=== PATIENT | female | born 1960 | race Caucasian/White ===

== ENCOUNTER 2018-09-22 00:24 | Outpatient (CLI) | payer MEDICAID, SELFPAY ==
--- NOTE | 2018-09-22 12:46 | DI.COMBO_ITS ---
SYMPTOMS/DIAGNOSIS: SCREENING, Z12.31, PT FEELS LUMPY TISSUE MAMMOGRAMS: Mammograms were interpreted according to the usual protocol including computer analysis with CAD system, tomosynthesis and C view imaging. The breast tissue is of moderate radiodensity. There is no evident mass. There are no suspicious calcifications. There is a question regarding a palpable abnormality in the superior portion of the right breast and ultrasound was carried out. At ultrasound, no cyst or mass is defined. SUMMARY: No evidence of malignancy, category 1. Yearly screening mammography is recommended. Breast density category B. MQSA ASSESSMENT OF FINDINGS: Negative. Category 1. Patient will receive a letter notifying them of these results. BI-RADS category B. There are scattered areas of fibroglandular density.
== END 2018-09-22 00:44 ==
PROVIDERS: PCP Specialist/Technologist Athletic Trainer; Visit Provider Specialist/Technologist Athletic Trainer
DX: Z12.31 Encounter for screening mammogram for malignant neoplasm of breast (principal); N63.10 Unspecified lump in the right breast, unspecified quadrant
CPT/HCPCS: 76642; 77063; 77067

== ENCOUNTER 2018-11-16 00:56 | Outpatient (CLI) | payer MEDICAID, SELFPAY ==
--- NOTE | 2018-11-16 13:00 | DI.RAD_ITS ---
SYMPTOMS/DIAGNOSIS: RIGHT KNEE PAIN, M25.561 RIGHT KNEE: Three views. There is periarticular spurring involving all three joint compartments. There does appear to be narrowing of the patellofemoral joint. The bones appear intact. The soft tissues are unremarkable. IMPRESSION: Mild to moderate osteoarthritis of the right knee.
[2018-11-16 14:40] LABS: Vitamin B12 544 pg/mL (193-986)
== END 2018-11-16 01:16 ==
PROVIDERS: PCP Nurse Practitioner Family; Referring Provider Nurse Practitioner Family; Visit Provider Nurse Practitioner Family
DX: M25.561 Pain in right knee (principal); M17.11 Unilateral primary osteoarthritis, right knee; E53.8 Deficiency of other specified B group vitamins
CPT/HCPCS: 36415; 73562; 82607

== ENCOUNTER 2018-11-30 00:27 | Outpatient (CLI) | payer MEDICAID, SELFPAY ==
--- NOTE | 2018-11-30 15:58 | DI.DEXA_ITS ---
SYMPTOM/DIAGNOSIS: VITAMIN D DEFICIENCY DEXA SCAN: Comparison is made with 2005. The bone mineral density measurements of the lumbar spine correspond to a total T score of 0.7, in the normal range. This is not significantly changed from the previous exam. The bone mineral density measurements of the left hip correspond to a total T score of -1.3 and a femoral neck T score of -1.6, consistent with osteopenia. The left forearm bone mineral density measurements correspond to a T score of the distal third of -0.2, in the normal range. The WESLEY image shows no evidence of compression fractures. IMPRESSION: Normal bone mineral density of the lumbar spine and left forearm. Osteopenia of the left hip.
== END 2018-11-30 00:47 ==
PROVIDERS: PCP Nurse Practitioner Family; Visit Provider Nurse Practitioner Family
DX: M85.88 Other specified disorders of bone density and structure, other site (principal); E55.9 Vitamin D deficiency, unspecified
CPT/HCPCS: 77080

== ENCOUNTER 2019-07-11 09:09 | Outpatient (REF) | payer MEDICAID, SELFPAY ==
[2019-07-11 23:04] LABS: Calculated LDL 104 mg/dL; Cholesterol 189 mg/dL (<200); Glucose 96 mg/dL (74-106); HDL Cholesterol 57 mg/dL (40-60); Triglyceride 140 mg/dL (<150)
== END 2019-07-11 09:29 ==
LOC: NCHCN 09:09
PROVIDERS: PCP Nurse Practitioner Family; Visit Provider Nurse Practitioner Family
DX: Z13.220 Encounter for screening for lipoid disorders (principal); Z13.1 Encounter for screening for diabetes mellitus; Z00.00 Encounter for general adult medical examination without abnormal findings
CPT/HCPCS: 80061; 82947

== ENCOUNTER 2019-07-11 10:00 | Outpatient (CLI) | payer MEDICAID, SELFPAY ==
--- NOTE | 2019-07-11 09:58 | DI.RAD_ITS ---
EXAM: XR KNEE RT 3V AP,LAT,JOÃO INDICATION: RT KNEE PAIN M25.561. COMPARISON: LEFT KNEE LIMITED 1 OR 2 VIEWS from 02/23/2013 TECHNIQUE: 2D digital imaging was performed. FINDINGS: No acute fracture or dislocation is present. Degenerative changes are seen in all 3 joint compartmen ts particularly the patellofemoral joint. The bones are normally mineralized. There is a small join t effusion. The soft tissues are otherwise unremarkable. IMPRESSION: No acute fracture or dislocation.
--- NOTE | 2019-07-11 10:02 | DI.RAD_ITS ---
EXAM: XR KNEE LT 3V AP,LAT,JOÃO INDICATION: TOTAL KNEE REPLACEMENT LT Z96.652, FALL DOWN STAIRS 2 WEEKS AGO, PERSISTENT PAIN, M25.56 1. COMPARISON: XR KNEE RT 3V AP,LAT,JOÃO from 07/11/2019 TECHNIQUE: 2D digital imaging was performed. FINDINGS: The patient has a left total knee replacement. No evidence of hardware failure is seen. No fracture or dislocation is present. The soft tissues are unremarkable. IMPRESSION: No acute fracture or dislocation.
== END 2019-07-11 10:20 ==
PROVIDERS: PCP Nurse Practitioner Family; Visit Provider Nurse Practitioner Family
DX: Z96.652 Presence of left artificial knee joint (principal); M25.562 Pain in left knee; W19.XXXD Unspecified fall, subsequent encounter; M25.561 Pain in right knee; M25.461 Effusion, right knee; M17.11 Unilateral primary osteoarthritis, right knee
CPT/HCPCS: 73562

== ENCOUNTER 2019-08-04 14:53 | Outpatient (REF) | payer MEDICAID, SELFPAY ==
[2019-08-04 20:18] LABS: Bacteria Negative HPF (Negative); C & S Indicated? C&S Done As Ordered; Casts Negative LPF (Negative); Crystals Negative HPF (Negative); Epithelial Cells Moderate HPF (Negative); Mucus Negative (Negative); Other Cells Negative (Negative); RBC Negative HPF (0-2)
== END 2019-08-04 15:13 ==
LOC: NCHCN 14:53
PROVIDERS: PCP Nurse Practitioner Family; Visit Provider Specialist/Technologist Athletic Trainer
DX: M54.5 Low back pain (principal); R82.998 Other abnormal findings in urine
CPT/HCPCS: 81015; 87086

== ENCOUNTER 2019-08-23 11:28 | Outpatient (CLI) | payer MEDICAID, SELFPAY ==
--- NOTE | 2019-08-23 11:02 | DI.RAD_ITS ---
EXAM: XR LUMBAR SPINE COMPLETE INDICATION: LOW BACK PAIN M54.9 X 1 MONTH. COMPARISON: XR DEXA BONE DENSITY W/WO WESLEY from 11/30/2018 TECHNIQUE: 2D digital imaging was performed. FINDINGS: The vertebral bodies are well maintained in height. There is moderate narrowing of the L4-5 disc spac e. Small endplate osteophytes are seen. There are facet joint degenerative changes, greatest at L4- 5 and L5-S1. No spondylolysis, spondylolisthesis or scoliosis is seen. There is mild spurring at th e SI joints. IMPRESSION: Degenerative changes, greatest at L4-5.
== END 2019-08-23 11:48 ==
PROVIDERS: PCP Nurse Practitioner Family; Visit Provider Nurse Practitioner Family
DX: M54.5 Low back pain (principal); M51.36 Other intervertebral disc degeneration, lumbar region; M47.816 Spondylosis without myelopathy or radiculopathy, lumbar region
CPT/HCPCS: 72110

== ENCOUNTER 2019-08-23 13:35 | Outpatient (REF) | payer MEDICAID, SELFPAY ==
[2019-08-23 21:29] LABS: Anion Gap 8.7 mmol/L (3-11); BUN 29 mg/dL (7-18); CO2 25.3 mmol/L (21.0-32.0); CREATININE 1.72 mg/dL (0.55-1.02); Calcium 8.2 mg/dL (8.5-10.1); Chloride 109 mmol/L (98-107); Estimated GFR 30.25 (mL/min/1.73m2); Glucose 91 mg/dL (74-106); Potassium 4.1 mmol/L (3.5-5.1); Sodium 143 mmol/L (136-145)
[2019-08-23 21:41] LABS: Abs Immature Grans 0.02 k/cumm (0.0-0.09); Absolute Basophil Count 0.02 k/cumm (0.0-0.2); Absolute Eosinophil Count 0.11 k/cumm (0.0-0.7); Absolute Lymphocyte Count 2.28 k/cumm (1.2-3.4); Absolute Monocyte Count 0.73 k/cumm (0.11-0.7); Absolute Neutrophil Count 6.27 k/cumm (1.2-6.7); Basophils % 0.2; Eosinophils % 1.2; HCT 39.4 % (36.0-46.0); HGB 12.3 g/dL (12.0-15.5); Immature Grans % 0.2 %; Lymphocytes % 24.2; Mean Corp. HGB Concentration 31.2 g/dL (32.0-36.0); Mean Corpuscular Hemoglobin 29.5 pg (27.0-33.0); Mean Corpuscular Volume 94.5 fL (80-95); Mean Platelet Volume 10.9 fL (8.0-11.0); Monocytes % 7.7; Neutrophils % 66.5; Platelet Count 263 x1000/uL (130-400); RBC 4.17 m/cumm (4.00-5.20); RBC Distribution Width 13.8 % (11.7-14.6); White Blood Cell Count 9.43 k/cumm (4.4-10.8)
== END 2019-08-23 13:55 ==
LOC: NCHCN 13:35
PROVIDERS: PCP Nurse Practitioner Family; Visit Provider Nurse Practitioner Family
DX: M54.5 Low back pain (principal)
CPT/HCPCS: 80048; 85025

== ENCOUNTER 2019-10-27 10:25 | Outpatient (CLI) | payer MEDICAID, SELFPAY ==
--- NOTE | 2019-10-27 10:15 | DI.RAD_ITS ---
EXAM: XR KNEE RT 1V CLINICAL HISTORY: R knee pain. TECHNIQUE: 2D digital imaging was performed. COMPARISON: XR KNEE RT 3V AP,LAT,JOÃO from 07/11/2019 FINDINGS: There is severe narrowing of the lateral patellofemoral joint with a kifk-[id number]-[id number] appearance. There is prominent periarticular spurring, greatest laterally. IMPRESSION: Severe patellofemoral degenerative changes. DATA REPOSITORY: RADIATION DOSE DELIVERED:
== END 2019-10-27 10:45 ==
PROVIDERS: PCP Nurse Practitioner Family; Visit Provider Physician Assistant
DX: M25.561 Pain in right knee (principal); M22.2X2 Patellofemoral disorders, left knee
CPT/HCPCS: 73560

== ENCOUNTER 2019-10-31 11:13 | Outpatient (REF) | payer MEDICAID, SELFPAY | END 2019-10-31 11:33 | LOC: NCHCN 11:13 | PROVIDERS: PCP Nurse Practitioner Family; Visit Provider Nurse Practitioner Family | DX: L02.11 Cutaneous abscess of neck (principal) | CPT/HCPCS: 87070; 87205 ==

== ENCOUNTER 2019-11-04 03:19 | Outpatient (CLI) | payer MEDICAID, SELFPAY ==
--- NOTE | 2019-11-04 | DI.US_ITS ---
EXAM: US SOFT TISSUE HEAD OR NECK CLINICAL HISTORY: NECK MASS, R22.1, CYST RT NECK. TECHNIQUE: Sonographic assessment utilizing grayscale and color Doppler imaging was performed and ta rgeted to the area of clinical concern. COMPARISON: No exams were available for comparison FINDINGS: The area of the palpable abnormality, there is a rough roughly 1.5 centimeter area of skin thickening which shows some hyperemia. No discrete mass or cyst is visible. The findings are consistent with sk in in infection or inflammation. DATA REPOSITORY:
== END 2019-11-04 03:39 ==
PROVIDERS: PCP Nurse Practitioner Family; Visit Provider Nurse Practitioner Family
DX: R22.1 Localized swelling, mass and lump, neck (principal); L08.9 Local infection of the skin and subcutaneous tissue, unspecified
CPT/HCPCS: 76536

== ENCOUNTER 2019-11-04 08:16 | Outpatient (CLI) | payer MEDICAID, SELFPAY ==
--- NOTE | 2019-11-04 11:00 | DI.MRI_ITS ---
EXAM: MR LOWER JOINT RT WO CLINICAL HISTORY: Right knee pain after falls,m23.91, internal derangement rt knee. TECHNIQUE: Multiplanar multisequence MRI was performed. The exam is limited by the patient's body h abitus. The knee coil as a unable to be used. The body coil was utilized. Exam is also somewhat li mited by patient motion. COMPARISON: XR KNEE RT 3V AP,LAT,JOÃO from 07/11/2019 XR KNEE RT 1V from 10/27/2019 FINDINGS: There is spurring from the femoral condyles and tibial plateaus. The marrow signal is normal. The re are severe degenerative changes of the patellofemoral joint, with prominent lateral spurring and l ateral patellar subluxation. The cartilage thinning involves underlying bone. There is a moderate-s ized joint effusion. Cartilage thinning is also seen of the femoral condyles and tibial plateaus. There is some edema around the anterior cruciate ligament but no evidence of a full-thickness tear. The posterior cruciate ligament, medial and lateral collateral ligaments and extensor mechanism appea r intact. Degenerative signal changes are seen in the medial meniscus. No superimposed tear is seen . There is a the anterior horn of the lateral meniscus is not well seen there is abnormal signal the area consistent with degenerative changes with superimposed tear. No displaced meniscal fragment is seen. There is no Ferguson's cyst. IMPRESSION: Limited exam due to patient body habitus and motion. Question of an ACL sprain. Severe degenerative changes of the patellofemoral joint. Severe degenerate degeneration of the anterior horn of the lateral meniscus and question of superimpo sed tear. DATA REPOSITORY:
== END 2019-11-04 08:36 ==
PROVIDERS: PCP Nurse Practitioner Family; Visit Provider Student in an Organized Health Care Education/Training Program
DX: M25.561 Pain in right knee (principal); M17.11 Unilateral primary osteoarthritis, right knee; M23.91 Unspecified internal derangement of right knee
CPT/HCPCS: 73721

== ENCOUNTER 2019-11-23 11:00 | Outpatient (REF) | payer MEDICAID, SELFPAY ==
--- NOTE | 2019-11-23 10:20 | SKI_PTH ---
PATIENT: Lacy Harris LOC: N U#:[id number] AGE/SX: 59/F ROOM: RE11/23/[address]: Nina Marie : 1960 BED: DIS: 11/23/2019 SPEC #: [id number] RECD: 11/23/19 12:32 STATUS: GRACIE REBharti #: [id number] CONNOR: 11/23/19 10:[address]: Nina Marie DEPT: Surgical Specimen RECD BY: Janel Macedo ENTERED: 11/23/19 12:32 SP TYPE: YING OTHR DR: Hali Sosa Tissues: 1 - SKIN CYST/TAG/DEBRIDEMENT Procedures: GROSS AND MICRO LEVEL 3 Comments: [id number]
== END 2019-11-23 11:20 ==
LOC: LBN 11:00
PROVIDERS: PCP Nurse Practitioner Family; Visit Provider Surgery
DX: L72.8 Other follicular cysts of the skin and subcutaneous tissue (principal)
CPT/HCPCS: 88304

== ENCOUNTER 2019-12-16 10:30 | Outpatient (CLI) | payer MEDICAID, SELFPAY ==
--- NOTE | 2019-12-16 10:15 | DI.RAD_ITS ---
EXAM: XR STANDING ALIGNMENT CLINICAL HISTORY: R knee OA TKA planning TECHNIQUE: COMPARISON: No exams were available for comparison FINDINGS: Standing alignment views of lower extremities were obtained. There is a total knee joint replacement position on the left. There are moderate degenerative changes the medial and lateral tibiofemoral j oints on the right. IMPRESSION:
== END 2019-12-16 10:50 ==
PROVIDERS: PCP Nurse Practitioner Family; Referring Provider Nurse Practitioner Family; Visit Provider Physician Assistant
DX: M23.91 Unspecified internal derangement of right knee (principal); M17.11 Unilateral primary osteoarthritis, right knee; Z96.652 Presence of left artificial knee joint
CPT/HCPCS: 77073

== ENCOUNTER 2019-12-23 04:02 | Outpatient (CLI) | payer MEDICAID, SELFPAY ==
[2019-12-23 09:35] LABS: Mean Corp. HGB Concentration 32.4 g/dL (32.0-36.0); Mean Corpuscular Hemoglobin 30.3 pg (27.0-33.0); Mean Corpuscular Volume 93.4 fL (80-95); Mean Platelet Volume 10.2 fL (8.0-11.0); Platelet Count 268 x1000/uL (130-400); RBC 3.96 m/cumm (4.00-5.20); RBC Distribution Width 13.4 % (11.7-14.6); White Blood Cell Count 5.15 k/cumm (4.4-10.8)
[2019-12-23 10:37] LABS: Anion Gap 9.5 mmol/L (3-11); BUN 24 mg/dL (7-18); CO2 24.5 mmol/L (21.0-32.0); CREATININE 1.76 mg/dL (0.55-1.02); Calcium 8.4 mg/dL (8.5-10.1); Chloride 107 mmol/L (98-107); Estimated GFR 29.46 (mL/min/1.73m2); Glucose 104 mg/dL (74-106); Potassium 4.7 mmol/L (3.5-5.1); Sodium 141 mmol/L (136-145)
--- NOTE | 2019-12-23 13:42 | INITIAL_ITS ---
- If Service Date Differs Date of service: 12/23/19 Time of Service: 13:42 Care Management Initial Assess REASON FOR HOSPITALIZATION:: Right knee replacement surgery. PAST MEDICAL HISTORY/PAST SURGICAL HISTORY:: Medical history: CKD (Chronic kidney disease) stage 3, infected sebaceous cyst of skin, neck mass, primary osteoarthritis of right knee, atopic eczema, IBS (irritable bowel syndrome), GERD (gastroesophageal reflux disease), cardiac murmur, depression, osteoarthritis ? multiple sites, vitamin D deficiency, vitamin B12 deficiency, hyperplastic colon polyp, interstitial cystitis, proteinuria, hypertension, autosomal dominant adult polycystic kidney disease, elevated glucose, pain in joint of right elbow, osteopenia, acute low back pain, urinary symptom or sign, and restless leg syndrome. Surgical history: section, history of gastr ic bypass, laproscopic hysterectomy, manipulation and arthroscopic lysis of adhesions, oophrectomy ? both, replacement of total knee joint ? left. ADVANCE DIRECTIVES:: None on file. Has patient been provided with info about the portal/API?: Yes CODE STATUS:: Full Code INSURANCE COVERAGE / FINANCIAL ISSUES:: Medicaid. PRIMARY CARE PHYSICIAN:: TREVON Morse ([facility]). POTENTIAL DISCHARGE NEEDS:: Follow up appointment with Dr. Henry and outpatient physical therapy. PATIENT/FAMILY EDUCATION NEEDS:: Discharge instructions, limitations, follow-up plan, including Ask Me Three and self-management. ANTICIPATED BARRIERS TO DISCHARGE:: No anticipated barriers at this time. TRANSPORTATION:: Via private vehicle with family. PLAN:: Anticipate Lacy will be discharged home when medically cleared by provider. She will follow up with Dr. Henry, outpatient physical therapy, and her plan of care as directed. Lacy will be transported home by her via private vehicle when ready.
[2019-12-24 01:08] LABS: COVID-19 RT-PCR UVMMC Result Negative (Negative)
== END 2019-12-23 04:22 ==
PROVIDERS: PCP Nurse Practitioner Family; Visit Provider Student in an Organized Health Care Education/Training Program
DX: M25.561 Pain in right knee (principal); M23.91 Unspecified internal derangement of right knee; Z11.59 Encounter for screening for other viral diseases; Z01.818 Encounter for other preprocedural examination
CPT/HCPCS: 36415; 80048; 85027; U0003

== ENCOUNTER 2019-12-27 08:09 | Observation (INO) | payer MEDICAID, SELFPAY ==
[2019-12-27] VITALS (10 sets, daily range): BP systolic 129–152; BP diastolic 58–103; PULSE 43–59; RESP 12–53; TEMP 35.4–36.8; O2SAT 96–100
--- NOTE | 2019-12-27 08:15 | PDOC.ERCMIN ---
- If Service Date Differs Date of service: 12/27/19 Time of Service: 08:15 Care Management Initial Assess REASON FOR HOSPITALIZATION:: Knee replacement. PAST MEDICAL HISTORY/PAST SURGICAL HISTORY:: Medical History: Internal derangement of right knee, and Kidney disease. Surgical History: section, hysterectomy - laproscopic, manipulation and arthroscopic lysis of adhesions of L knee, oophrectomy - both, and replacement of total knee joint. PREVIOUS FUNCTIONAL STATUS/SOCIAL/FAMILY SUPPORTS:: Lacy lives in [place] with her , Tay, who is disabled. The couple's three sons live nearby and help out as needed. Lacy is independent with her ADLs at baseline. CURRENT FUNCTIONAL STATUS:: Lacy reports she lives in a one level home with a ramp and she does not need any sevices at this time. Her medical chart indicates she had a left knee replacement in 2011. ADVANCE DIRECTIVES:: None on file. Has patient been provided with info about the portal/API?: No Did the patient sign up for the portal?: No CODE STATUS:: Full Code INSURANCE COVERAGE / FINANCIAL ISSUES:: Medicaid. CURRENT HOME/COMMUNITY SERVICES/EQUIPMENT:: Lacy denies having any community services. She has a FWW at home. PRIMARY CARE PHYSICIAN:: TREVON Morse ([facility]) POTENTIAL DISCHARGE NEEDS:: Follow up appointment with Dr. Henry and outpatient physical therapy. PATIENT/FAMILY EDUCATION NEEDS:: Discharge instructions, limitations, follow up plan, including Ask Me Three and self-management. ANTICIPATED BARRIERS TO DISCHARGE:: No anticipated barriers at this time. TRANSPORTATION:: Via private vehicle by family. PLAN:: Lacy will be discharged home when medically cleared by provider. She will follow up with Dr. Henry, outpatient physical therapy, and her plan of care as prescribed. She will be driven home via private vehicle by family when ready.
[2019-12-27] MEDS: Celecoxib 200 MG CAP 400 MG PO (09:10)
[2019-12-27] MEDS: Gabapentin 300 MG CAP PO (09:10)
[2019-12-27] MEDS: Acetaminophen 500 MG TAB 1000 MG PO ×2 (09:10→14:43)
[2019-12-27] MEDS: ceFAZolin 2 GM/50 ML BAG IVPB (10:40)
[2019-12-27] MEDS: Normal Saline 20 ML VIAL (11:12)
[2019-12-27] MEDS: Bupivacaine 0.25% Pres-Free 30 ML VIAL (11:13)
[2019-12-27] MEDS: Ketorolac 30 MG/ML VIAL (11:13)
[2019-12-27] MEDS: Lactated Ringers 1,000 ML 80 ML IV ×2 (12:11→14:50)
--- NOTE | 2019-12-27 14:46 | PT.INIE ---
Date of service: 12/27/19 Time of Service: 14:46 PT Notes Visit Reasons: RIGHT KNEE DJD Physical Therapy Inpatient Initial Evaluation Date: 12/27/2019 Referring Doctor: José Henry MD PT Orders: PT CONSULT: Status post Ortho surgery. Status post right TKA. Precautions: Fall. Standard. WBAT on R LE. Patient Profile/Admitting Diagnosis: Lacy is a 59-year-old female with unilateral osteoarthritis of right knee status post total knee arthroplasty on postoperative day 0 PMHX: Medical History CKD (chronic kidney disease) stage 3, GFR 30-59 ml/min (Acute) Infected sebaceous cyst of skin (Acute) Internal derangement of right knee (Acute) Kidney disease (Acute) Neck mass (Acute) Surgical History section date not given.HE History of gastric bypass (Acute) Hysterectomy, Laproscopic pt did not state date.HE Manipulation and arthroscopic lysis of adhesions (03/17/12) of L knee (from records).HE Oophrectomy, Both no date given. Replacement of total knee joint left 03/17/2012 Social History/Home Situation: Lacy lives with in a private home with a ramp to enter. House has been made handicap accessible for her food Lacy has been the main caregiver for. She is prior to surgery. Equipment Owned/DME: 4 wheeled walker, grab bars, walk-in shower, hand-held shower Subjective: Patient reports minimal discomfort on the right knee with movement and with weight bearing but was able to complete mobility assessment without undue difficulty. She denies headache, chest pain, and dizziness throughout PT session. Objective: General Observation: Rey wraps on right LE. IV in left UE. Mental Status: Alert and oriented x4 Pain: 2-3/10 Vital Signs: Blood pressure of 153/103 mmHg as measured by nurse Ilya at the start of PT session. ROM: Right Upper Extremity: Shoulder Flexion WFL. Shoulder abduction WFL. Elbow flexion WFL. Wrist flexion WFL. Opening and closing of hand WFL. Left Upper Extremity: Shoulder Flexion WFL. Shoulder abduction WFL. Elbow flexion WFL. Wrist flexion WFL. Opening and closing of hand WFL. Right Lower Extremity: Hip flexion WFL. Hip abduction WFL. Knee flexion -15 to 90 degrees. Knee extension -15 degrees. Ankle dorsiflexion WFL. Ankle plantarflexion WFL. Left Lower Extremity: Hip flexion WFL. Hip abduction WFL. Knee flexion WFL. Ankle dorsiflexion WFL. Ankle plantarflexion WFL. Strength: Right Upper Extremity: Shoulder flexors 5/5. Shoulder abductors 5/5. Elbow flexors 5/5. Elbow extensors 5/5. Credit Assistant strong. Left Upper Extremity: Shoulder flexors 5/5. Shoulder abductors 5/5. Elbow flexors 5/5. Elbow extensors 5/5. Credit Assistant strong. Right Lower Extremity: Hip flexors 5/5. Hip abductors 5/5. Knee flexors 3-/5. Knee extensors 3-/5. Ankle dorsiflexors 4/5. Ankle plantarflexors 5/5. Left Lower Extremity:Hip flexors 5/5. Hip abductors 5/5. Knee flexors 5/5. Knee extensors 5/5. Ankle dorsiflexors 5/5. Ankle plantarflexors 5/5. Sensation: Intact as to pain and pressure on bilateral lower extremities. Bed Mobility/Transfers: Supine to sit standby assist Sit to stand contact-guard assist Stand to sit standby assist Bed to chair standby assist Chair to bed standby assist Gait: Patient tolerated level surface ambulation of 100 feet using front wheeled walker with step to gait pattern with contact-guard assist and IV pole management of PT. Nurse Dennis provided wheelchair follow for safety. 3-4/10 pain in the right knee which started with rest. Denies headache, chest pain, and dizziness during ambulation activity. Balance: Static Sitting: Normal Dynamic Sitting: Normal Static Standing: Fair Dynamic Standing: Fair Special Tests: Mobility Limitations Standardized [employer] AM-PAC 6 clicks Basic Mobility Inpatient Short Form: Raw Score: 17 CMS Score: 50% deficit Informed Consent/Education: Patient instructed in purpose of PT consult and plan of care. Assessment: Lacy demonstrates functional mobility decline and requires the use of a front wheeled walker for all mobility ADL performance, unsteadiness of gait, impairment in balance, and generalized weakness in the right knee major muscle groups due to postoperative status. Lacy is a 59-year-old female with unilateral osteoarthritis of right knee status post total knee arthroplasty on postoperative day 0 Patient presents with clinical signs and symptoms consistent with current/admitting diagnoses that have resulted to mobility limitations, gait instability, generalized weakness, and impairment of motor control as demonstrated by the following impairment level findings: 1. Decreased strength to right knee major muscle groups 2. Impaired standing balance 3. Impaired activity tolerance 4. Limitation of joint range of motion in right knee Impairments are contributing to the following functional limitations: 1. Inability to safely ambulate without assistive device and physical assistance 2. Increase completion time for mobility ADL performance 3. Increased fall risk 4. Inability to negotiate steps alone safely Patient is assessed as a complexity based on the following: History: 59-year-old female [id number] moderate with impairment level findings, functional limitations, and past medical history as indicated above Examination: Demonstrable impairment in strength, balance, and mobility level with underlying impairments and functional limitations as documented above Presentation:Evolving Decision Making: complexity Goals: N/A. PT consult only. Plan of Care/Treatment Plan: N/A. PT consult only. DISCHARGE RECOMMENDATIONS: Home with and family when medically cleared by orthopedic surgeon. Patient will benefit from the use of a front wheeled walker in order to maximize safety of mobility ADL performance at home. Outpatient physical therapy services according to orthopedic surgeon's timeline recommendations. TREATMENT CODE/TIME: [id number] x 30 minutes,, [id number] x 8 minutes beginning at 14:46 PM. Thank you very much for this referral. Sue Damon PT, DPT, CLT [facility] [place], [place]
--- NOTE | 2019-12-27 14:46 | W.PM.OP ---
Date of service: 12/27/19 Time of Service: 12:46 Operative Note Operative Note DATE OF PROCEDURE: 12/27/19 PRE-OP DIAGNOSIS: Right Knee Osteoarthritis POST-OP DIAGNOSIS: same PROCEDURE: Right Total Knee Replacement SURGEON: José Henry LABORER [employer]ING: Kimmie Garcia ANESTHESIA: regional and spinal ESTIMATED BLOOD LOSS: 300 PATHOLOGY: none sent TOURNIQUET TIME: 34 COMPLICATIONS: None Patient was transported to: PACU Patient's condition: stable Implants: 1. Depuy Attune Cruciate Retaining Femoral Component, Size 6 2. Depuy Attune Rotating Platform Tibial Component, Size 5 3. Depuy Attune 6x7mm CR,RP Poly 4. Depuy Attune Patellar Component, Size 38mm Indications: I have seen Lacy in clinic for symptoms of knee arthritis, confirmed with radiographic findings. Lacy has exhausted nonoperative methods and was having significant limitations in daily function and desired better function and less pain. I discussed the technical details of a knee replacement. I explained the risks of the procedure to include, but not limited to, bleeding, infection, pain, stiffness, fracture, damage to nerves and vessels, damage to muscles and tendons, loosening, need for repeat procedure, blood clot and cardiopulmonary demise. Despite these risks, she elected to proceed. Findings: There was significant signs of arthritis throughout the knee in all 3 compartments. Procedure Description: Lacy was greeted in the preoperative holding area where the correct side was identified and marked. The consent was reviewed with the patient and signed. The history and physical was updated. All questions were answered. Preoperative mediacations were administered: Acetaminophen 1000mg, Celebrex 400mg, and Gabapentin 300mg. An adductor canal block was then administered by the anesthesia team in the PACU. Lacy was taken back to the operating room. A spinal anesthestic was then administered. The patient was placed into the supine position on the operating room table. A nonsterile tourniquet was placed high onto the leg but only used for cementing. Posts were placed for positioning during the procedure. All bony prominences were well padded. Prophylactic antibiotics in the form of Cefazolin were administered. 1g of Tranxemic Acid was given intravenously within 30 minutes of incision. The right leg was then prepped with Chloraprep and draped in a standard fashion with impervious stockinette and extremity drape. A second prep with Chloraprep was performed prior to placing Ioband. A timeout to confirm correct identity, side and site, procedure, allergies, anesthesia, and medical concerns was performed. With the knee in some flexion, a midline incision was made overlying the knee. Full thickness skin flaps were raised once the extensor mechanism was encountered. These were raised medially and laterally. Any bleeding was controlled with electrocautery. Once the extensor mechanism was fully exposed, a medial parapatellar arthrotomy was performed in a flexed position. All bleeding from the arthrotomy and the geniculate arteries was coagulated. A medial subperiosteal peel was performed with electrocautery to the midcoronal plane. The fat pad was removed while keeping the patellar tendon protected. The anterior distal femur synovium was removed for later visualization. The ACL and PCL were resected and the anterior horn of the lateral meniscus was transected. The knee was then flexed with the patella everted. Large osteophytes from the tibia were removed. Large osteophytes from the femur were removed. Using a step drill, and based on preoperative templating, the femoral canal was entered. This was done with a step drill without any difficulty. The intramedullary distal femoral cut guide was inserted, set to a 4 degree valgus cut and 10mm cut thickness. There was some hypoplasia of the lateral femoral condyle and any remnant cartilage of the medial femoral condyle was removed for appropriate thickness. The distal femoral cut guide was then held in position and pinned. With the soft tissues protected, the distal cut was performed. This was passed over a few times to ensure a planar cut. I then turned attention to the tibia. The extramedullary guide was placed onto the leg. The distal aspect was slid medial to adjust for position of center of ankle and stay in line with shaft of the tibia. Approximately 3-5 degrees of posterior slope was kept in the proximal cutting guide. The center of the guide was aligned with the PCL. The stylus was used to assess cut thickness. The medial side, most involved side, was set for a 5mm cut, corresponding to 7mm laterally. This was then held in position and pinned into place with 2 additional pins and a cross pin for stability. The medial and lateral collateral ligaments were protected and the cut was performed. With this completed, it was assessed and noted to be of appropriate dimensions. The guide was removed. A spacer block was inserted and the knee was brought into extension. The 7mm spacer block provided full extension, without hyperextension and with stability of both the medial and lateral collateral ligaments was assessed. The pins from the femur and the tibia were then removed. The distal femur was then sized. The anterior stylus was placed onto the lateral ridge of the anterior femur. This indicated a size 6 femur. The external rotation of the guide was adjusted to 3 degrees to match the epicondylar axis, perpendicular to Celso?s line. The 4-in-1 cutting guide was the placed. The posterior medial femur cut was evaluated and appeared of good thickness. The spacer block was inserted underneath the cutting guide and stability was confirmed in 90 degrees of flexion. An devyn wing was used to confirm appropriate position of the anterior cut to avoid notching. This cutting guide was ensured to be flush on the cut surface and then pinned into place with headed pins. While protecting the soft tissues, quad tendon, and collateral ligaments, the anterior and posterior cuts were performed with a saw. The central two pins were removed and the posterior and anterior chamfers were cut next. The notch-cutting guide was placed. This was pinned to lateralize the femoral component as much as possible while keeping it flush on the cut surface. This was then pinned into position. A reciprocating saw was used to make the small notch cut. A trial CR femoral component was then inserted, impacted down to the cut surfaces, and the lug holes were drilled. A provisional trial tibial component was placed and the knee was brought through range of motion. There was noted to be excellent extension and flexion. There was no significant instability. The patella was tracking without thumbs. The tibial cut surface was fully exposed. The medial and lateral menisci were removed. The tibia was then sized as a 5. The tibia had been previously marked during trialing to correspond to the center of the tibial component to help with rotation. The trial was aligned to this asha, approximately rotated to the medial 1/3rd of the tibial tubercle. The trial was pinned into place. The tibia was prepared with a reamer and a keel punch. The knee was then brought into extension and the patella was measured as 25mm. Using the patellar clamp and cut guide, this was resected to a flat surface with at least 13mm of thickness remaining. The size 38 patella fit the best. This was oriented and then clamped into position. The lugs were drilled. The trial components were removed. The final components, except for the polyethylene were opened on the back table. The periosteal and capsular tissues, especially posteriorly, around the knee were then systematically injected with a periarticular cocktail consisting of 50cc 0.25% Marcaine, 30mg Ketorolac, 20cc of Exparal and 50cc of injectable saline. The tourniquet was then inflated to 275mmHg. The knee was thoroughly irrigated with a pulse lavage and dried. On the back table, with the implants opened, the cement was mixed. 2 batches of antibiotic laden cement were prepared with vacuum assistance. After the cement was ready it was placed on to the back side of the tibial component. A small amount was placed onto the posterior flange of the femur. Cement was manual pressurized and impregnated into the cut surface of the tibia. The tibial component was then inserted into the cut surface and impacted into position. Excess cement was removed and the component was reimpacted. Again, excess cement was removed and our attention was then turned to the femur. The femoral cut surface was once again dried and cement was manually impacted into the cut surface. The femoral component was lined with the lug holes and impacted. Excess cement was removed. It was ensured to be down against the cut surface. The trial polyethylene was then inserted and the leg was brought out into full extension for the duration of the cement curing process, approximately 15min. Cement was lastly manually impacted into the cut surface of the patella and the patellar button was clamped into position and held. During this process attention was turned to the gutters of the knee and for all interfaces for any excess cement. While the cement was hardening, the knee was irrigated with Irrisept chlorhexadine solution. It was allowed to sit in the knee for 3 minutes. After the cement had finally cured, approximately 15min, the clamp was removed from the patella and the knee was taken through range of motion. A size 7mm polyethylene component provided the best range of motion and stability with less than 2mm gapping with medial and lateral stress and full extension without significant hyperextension. The patella was tracking with a no-thumbs technique. The trial poly was removed and once again the knee was checked for any loose, excess, or errant cement. The poly component was then inserted into position after cleaning and drying the tibial tray. The capsule was then reapproximated with a No. 1 Vicryl at multiple locations. The capsule was finally closed with a No. 2 Stratafix, barbed suture. The tourniquet was then released and the arthrotomy appeared watertight without significant bleeding. The second dosing of 1g TXA was started. Deep tissues were then reapproximated with 0 Vicryl and 2-0 Vicryl. The skin was closed with a running 3-0 Monocryl in a subcuticular fashion. This was reinforced with skin glue. A Mepilex silver dressing was applied along with a lamq-vm-swoiz CHEY wrap. A CryoCuff was applied. Lacy was transferred to the hospital bed without difficulty an suffering no apparent complication. Lacy has a good prognosis. Physical therapy will start today and without restrictions, weight-bearing as tolerated. Aspirin 81mg BID will be used for DVT prophylaxis.
--- NOTE | 2019-12-27 14:53 | W.PM.DS.N ---
Date of service: 12/27/19 Time of Service: 16:06 DS: Diagnosis Discharge Diagnosis (1) Primary osteoarthritis of right knee: Status: Acute Discharge Plan Disposition Patient Disposition: HOME Condition: Good Discharge Details Reason For Visit: RIGHT KNEE DJD Admit Date/Time: 12/27/19 08:09 Admit Provider: José Henry Attending Provider: José Henry Primary Care Provider: Hali Sosa Hospital Course Hospital Course: Patient was admitted to the medical/surgical floor following the procedure. The surgery was tolerated well without any notable medical, surgical, or anesthetic complications. Mobilization began postoperatively. Lacy was voiding spontaneously. Vitals were stable. Physical therapy worked with the patient and was cleared for discharge home. No acute medical issues. Pain was controlled on oral regimen. Home Meds and New Rx's Prescriptions: New aspirin 81 mg tablet,delayed release (DR/EC) 81 mg PO BID Qty: 60 RF: 0 acetaminophen 500 mg tablet 1,000 mg PO Q8H PRN (Reason: pain) Qty: 90 RF: 3 oxycodone 5 mg tablet 5 mg PO Q4H Qty: 18 RF: 0 omeprazole 20 mg capsule,delayed release(DR/EC) 20 mg PO DAILY Qty: 30 RF: 0 naproxen 500 mg tablet 500 mg PO BID PRNQty: 60 RF: 0 Continued omeprazole 20 MG capsule,delayed release(DR/EC) 20 mg PO DAILY RF: 0 cyanocobalamin (vitamin B-12) [Vitamin B-12] 1,000 MCG tablet 1,000 mcg PO DAILY RF: 0 multivitamin 1 EACH capsule 1 ea PO DAILY RF: 0 gabapentin 100 mg capsule 300 mg PO HS RF: 0 calcium citrate 250 mg calcium tablet 250 mg PO DAILY RF: 0 cholecalciferol (vitamin D3) 25 mcg (1,000 unit) capsule 25 mcg PO DAILY RF: 0 losartan 25 mg tablet 25 mg PO HS RF: 0 Discontinued acetaminophen [Tylenol Extra Strength] 500 mg tablet 1,500 mg PO HS PRNRF: 0 aspirin [Aspirin Low-Strength] 81 MG tablet,chewable 81 mg PO DAILY RF: 0 Discharge Instructions Additional Instructions: Dr. Henry?s Total Knee Discharge Instructions Activity: The most important activity is to walk. You should try to take short walks a few times a day. It is important that when resting you work on keeping the knee straight. Avoid putting a pillow behind the knee as this will encourage flexion. Work on range of motion exercises as provided by Physical Therapy and the preoperative booklet. - Start outpatient physical therapy within 2 weeks. - You should wear the CASTILLO hose on both legs for 2 weeks. Dressing: Keep the surgical dressing (Mepilex) in place for at least one week. If you went home on the surgical day, you should remove the CHEY wrap on the second day and then apply the CASTILLO hose. The dressing may get wet after 3 days but avoid soaking the dressing. If it gets wet, just lightly pat dry. Most patient prefer to cover with ClingWrap or Saran Wrap to keep the dressing dry. After the first week, the dressing may be removed and replaced with light gauze and tape or nothing. Medications: - You should take Tylenol and anti-inflammatory Naproxen as your primary pain control medications. Start reducing your usage of Naproxen as soon as possible as this can worsen your kidney disease. - You have been prescribed a stronger pain medication Oxycodone for breakthrough pain, take as needed as prescribed. - You will continue to take a stomach acid reduction agent, Omeprazole, to help reduce stomach acid and reflux. - You will be taking Aspirin 81mg twice a day for DVT prevention unless instructed otherwise. - If you have constipation you should take Colace or Miralax (both [id number]). It takes most people 3-4 days to have a bowel movement. Follow-up: 2 weeks. You should also call physical therapy to work on scheduling outpatient therapy sessions which can begin at 2 weeks. If you have any acute concerns or questions, please do not hesitate to contact the office at [phone]. You may contact Dr. Henry with any questions after hours through the hospital at [phone] or on his cell phone at [phone]. Referrals: José Henry MD [ [facility] STAFF PHYSICIAN] - 01/12/20 9:15 am Activity:: Activity as Tolerated Equipment/Supplies:: Walker Diet:: As Tolerated Discharge Orders Discharge Orders: Discharge Order (Routine); Ordered 12/27/19 Ordered By: José Henry DS: Summary Status at Discharge Functional status at discharge: uses cane/walker Overall status at discharge: patient is progressing back to baseline Mental Status: mental status grossly normal Speech and Movement: speech and movement normal Mood: congruent mood Affect: normal affect Exam Psych Mental Status: mental status grossly normal Speech and Movement: speech and movement normal Mood: congruent mood Affect: normal affect DS: Data Vitals/I&O Vitals and I&O: Vital Signs Temperature 36.4 C L 12/27/19 13:58 Temperature Source Tympanic 12/27/19 13:58 Pulse 43 L 12/27/19 13:58 Pulse Rhythm Regular 12/27/19 14:01 Respiratory Rate 14 12/27/19 13:58 Respiratory Effort Non-Labored 12/27/19 14:01 Respiratory Depth Normal 12/27/19 14:01 Respiratory Pattern Normal 12/27/19 14:01 Blood Pressure 129/83 12/27/19 13:58 Pulse Oximetry 98 12/27/19 13:58 Oxygen Delivery Method Room Air 12/27/19 13:58 Oxygen Flow Rate 0 12/27/19 13:58 Pain Level 3 12/27/19 14:43 Intake & Output 12/26/19 12/27/19 12/27/19 23:59 11:59 23:59 Intake Total 110 / 1082 972 / 1082 Output Total 300 / 300 Balance -190 / 782 972 / 782 Weight 129.5 kg Intake: IV 110 / 1082 972 / 1082 Output: Estimated Blood Loss 300 / 300 Other: Emesis Description None [facility] Medical History CKD (chronic kidney disease) stage 3, GFR 30-59 ml/min (Acute) Infected sebaceous cyst of skin (Acute) Kidney disease (Acute) Neck mass (Acute) Surgical History section date not given.HE History of gastric bypass (Acute) History of trigger finger (Acute) Hysterectomy, Laproscopic pt did not state date.HE Manipulation and arthroscopic lysis of adhesions (03/17/12) of L knee (from records).HE Oophrectomy, Both no date given.HE Replacement of total knee joint left 03/17/2012 Social History Smoking/Tobacco Use Status: Never Drug use: Never
--- NOTE | 2019-12-27 15:21 | NUR.NOTE ---
Nursing Note: Patient arrived on [facility] floor at 1332 on own bed from PACU. Patient oriented to call whittaker, TV remote, telephone, location of personal items. Meal delivered at 1400 from food services, well tolerated. Bladder scan at 1500, . Patient denies need to urinate.
[2019-12-27] MEDS: ceFAZolin 1 GM/50 ML BAG IVPB (15:32)
--- NOTE | 2019-12-27 16:42 | PDOC.CMDIS ---
- If Service Date Differs Date of service: 12/27/19 Time of Service: 16:42 LACE Index Scoring Tool - Questions: Length of Stay (in days): 1 Acuity (Admit via E.D.?): No Care Management Discharge Reason for Hospitalization: Knee replacement. Discharge Plan: Lacy was provided a FWW at the request of PT. She has a 4WW at home however for safety PT recomends the FWW. Lacy does not identify any additional needs she is hopeful she will be discharged home today. She has support at home and feels that she is ready for discharge. Patient/Family Education Needs: Discharge education, limitations and follow up plan of care including ask me three and self management.
== END 2019-12-27 18:00 | disposition home or self-care (01) ==
LOC: MS 17:30 → PDS 17:30
PROVIDERS: Admitting Provider Student in an Organized Health Care Education/Training Program; PCP Nurse Practitioner Family; Visit Provider Student in an Organized Health Care Education/Training Program
PROC: 0SRC0J9 Replacement of Right Knee Joint with Synthetic Substitute, Cemented, Open Approach (ICD-10-PCS; CPT 27447; principal; 2019-12-27 11:45)
DX: M17.11 Unilateral primary osteoarthritis, right knee (principal); M25.561 Pain in right knee; Z96.651 Presence of right artificial knee joint; N18.3 Chronic kidney disease, stage 3 (moderate); I12.9 Hypertensive chronic kidney disease with stage 1 through stage 4 chronic kidney disease, or unspecified chronic kidney disease
CPT/HCPCS: 27447; C1776; 76942; 97162; 97530; NC; 93005; 93010; G0378; J0690; J1100; J1885; J2001; J2250; J2405; J2704

== ENCOUNTER 2020-01-12 10:45 | Outpatient (CLI) | payer MEDICAID, SELFPAY ==
--- NOTE | 2020-01-12 09:15 | DI.RAD_ITS ---
EXAM: XR STANDING ALIGNMENT and XR knee RT 1 V CLINICAL HISTORY: 1ST POST OP. TECHNIQUE: 2D digital imaging was performed. COMPARISON: CR XR STANDING ALIGNMENT from 12/16/2019 FINDINGS: The patient has bilateral total knee arthroplasties. The left knee arthroplasty appears grossly unch anged on the single AP view. Two views of the right knee were obtained. The orthopedic hardware crala ears in good position. No lucencies are seen in or about the orthopedic hardware. The bones are int act. The hip joints are well maintained. The soft tissues are unremarkable. IMPRESSION: Bilateral total knee arthroplasties. DATA REPOSITORY: RADIATION DOSE DELIVERED:
--- NOTE | 2020-01-12 09:15 | DI.RAD_ITS ---
EXAM: XR STANDING ALIGNMENT and XR knee RT 1 V CLINICAL HISTORY: 1ST POST OP. TECHNIQUE: 2D digital imaging was performed. COMPARISON: CR XR STANDING ALIGNMENT from 12/16/2019 FINDINGS: The patient has bilateral total knee arthroplasties. The left knee arthroplasty appears grossly unch anged on the single AP view. Two views of the right knee were obtained. The orthopedic hardware carla ears in good position. No lucencies are seen in or about the orthopedic hardware. The bones are int act. The hip joints are well maintained. The soft tissues are unremarkable. IMPRESSION: Bilateral total knee arthroplasties. DATA REPOSITORY: RADIATION DOSE DELIVERED:
== END 2020-01-12 11:05 ==
PROVIDERS: PCP Nurse Practitioner Family; Visit Provider Student in an Organized Health Care Education/Training Program
DX: Z96.653 Presence of artificial knee joint, bilateral (principal); Z47.1 Aftercare following joint replacement surgery
CPT/HCPCS: 73560; 77073

== ENCOUNTER 2020-06-08 02:35 | Outpatient (CLI) | payer MEDICAID, SELFPAY ==
--- NOTE | 2020-06-08 | DI.MAMMO_ITS ---
EXAM: MG MAMMO SCREENING CLINICAL HISTORY: SCREENING, Z12.31, [facility], Z00.00 TECHNIQUE: Mammograms were interpreted according to the usual protocol including computer analysis w [employer] CAD system, tomosynthesis and C-view imaging. COMPARISON: FINDINGS: The breasts are of moderate density with fairly symmetrical distribution of fibroglandular tissue. N o dominant mass or clumped microcalcification is identified in either breast. The current examinatio n is compared with previous examinations including September 2018 and there has been no gross interval ch sarah in appearance in comparison with the prior studies. IMPRESSION: No specific evidence of malignancy at this time. Routine screening examinations are suggested at yea rly intervals due to the family history of breast carcinoma. BI-RADS Category 1 - Negative Breast Density - Category B - Scattered areas of fibroglandular density
== END 2020-06-08 02:55 ==
PROVIDERS: PCP Nurse Practitioner Family; Visit Provider Nurse Practitioner Family
DX: Z12.31 Encounter for screening mammogram for malignant neoplasm of breast (principal); Z80.3 Family history of malignant neoplasm of breast
CPT/HCPCS: 77063; 77067

== ENCOUNTER 2021-02-20 09:02 | Outpatient (REF) | payer MEDICAID, SELFPAY ==
[2021-02-20 20:51] LABS: Iron 94 ug/dL (50-170)
[2021-02-20 21:12] LABS: ALT 10 U/L (14-59); AST 12 U/L (15-37); Albumin 3.5 g/dL (3.4-5.0); Alkaline Phosphatase 78 U/L (46-116); Anion Gap 8.1 mmol/L (3-11); BUN 25 mg/dL (7-18); Bilirubin, Total 0.5 mg/dL (0.2-1.0); CO2 25.9 mmol/L (21.0-32.0); CREATININE 1.8 mg/dL (0.55-1.02); Calcium 8.3 mg/dL (8.5-10.1); Calculated LDL 95 mg/dL (<100); Chloride 108 mmol/L (98-107); Cholesterol 179 mg/dL (<200); Ferritin 65 ng/mL (8-252); Glucose 103 mg/dL (74-106); HDL Cholesterol 52 mg/dL (40-60); Potassium 4.8 mmol/L (3.5-5.1); Sodium 142 mmol/L (136-145); Total Protein 6.4 g/dL (6.4-8.2); Triglyceride 163 mg/dL (<150); Vitamin B12 282 pg/mL (193-986)
[2021-02-21 01:20] LABS: Vitamin D 25 Total 15.8 ng/mL (30-100)
[2021-02-26 12:24] LABS: Methylmalonic Acid 0.53 nmol/mL (<=0.40)
== END 2021-02-20 09:03 | disposition home or self-care (01) ==
LOC: NCHCN 09:02
PROVIDERS: PCP Nurse Practitioner Family; Visit Provider Nurse Practitioner Family
DX: Z13.220 Encounter for screening for lipoid disorders (principal); E55.9 Vitamin D deficiency, unspecified; E53.8 Deficiency of other specified B group vitamins; G25.81 Restless legs syndrome; N18.30 Chronic kidney disease, stage 3 unspecified; R25.2 Cramp and spasm
CPT/HCPCS: 80053; 80061; 80186; 82306; 83090; 82607; 82728; 83540; 83735

== ENCOUNTER 2021-03-12 17:20 | Outpatient (REF) | payer MEDICAID, SELFPAY ==
[2021-03-12 20:30] LABS: Uric Acid 7.8 mg/dL (2.6-6.0)
== END 2021-03-12 17:21 | disposition home or self-care (01) ==
LOC: NCHCN 17:20
PROVIDERS: PCP Nurse Practitioner Family; Visit Provider Nurse Practitioner Family
DX: M10.9 Gout, unspecified (principal)
CPT/HCPCS: 84550

== ENCOUNTER 2021-03-22 08:33 | Emergency (ER) | payer MEDICAID, SELFPAY ==
[2021-03-22 08:38] VITALS: BP 120/67; PULSE 60; RESP 18; TEMP 36.6; O2SAT 99
--- NOTE | 2021-03-22 08:45 | DI.RAD_ITS ---
Exam(s) XR HAND LT COMPLETE XR WRIST LT COMPLETE EXAM: XR WRIST LT COMPLETE CLINICAL HISTORY: FOBANDAR. TECHNIQUE: 2D digital imaging was performed. COMPARISON: CR LEFT WRIST COMPLETE + NAVICULA from 09/08/2014 CR LEFT WRIST COMPLETE + NAVICULA from 09/08/2014 CR LEFT WRIST LIMITED from 09/14/2014 CR LEFT WRIST LIMITED from 09/14/2014 CR LEFT WRIST LIMITED from 09/21/2014 CR LEFT WRIST LIMITED from 10/19/2014 CR LEFT WRIST LIMITED from 10/19/2014 CR XR HAND LT COMPLETE from 03/22/2021 CR XR HAND LT COMPLETE from 03/22/2021 FINDINGS: BONES: No acute fracture is present. Old the healed distal radial fracture. No bony destructive les ion is seen. JOINTS: The carpal bones are normally aligned. Mild degenerative changes. SOFT TISSUE: Dorsal soft tissue swelling over the carpal region. IMPRESSION: Unremar old distal radial fracture. No acute fracture. DATA REPOSITORY: RADIATION DOSE DELIVERED:
--- NOTE | 2021-03-22 08:45 | DI.RAD_ITS ---
Exam(s) XR KNEE RT 4V AP,LAT,JOÃO,PAT EXAM: XR KNEE RT 4V AP,LAT,JOÃO,PAT CLINICAL HISTORY: fall, landed on patella. TECHNIQUE: 2D digital imaging was performed. COMPARISON: CR XR KNEE RT 1V from 01/12/2020 FINDINGS: BONES: Total knee prosthesis, unchanged in appearance. No acute fracture is present. No bony destruc tive lesion is seen. JOINTS: The knee is normally aligned. No joint effusion is seen. SOFT TISSUE: Normal. IMPRESSION: Total knee prosthesis. No acute fracture. DATA REPOSITORY: RADIATION DOSE DELIVERED:
--- NOTE | 2021-03-22 08:52 | ED.GENADUL_ITS ---
Discharge Plan Disposition Patient Disposition: HOME Condition: Good Discharge Details Clinical Impression: Multiple contusions, Sprain of left wrist Primary Care Provider: Hali Sosa ED Provider: Gayathri Mancilla Home Meds and New Rx's Prescriptions: Continued aspirin 81 mg tablet,delayed release (DR/EC) 81 mg PO DAILY RF: 0 omeprazole 20 MG capsule,delayed release(DR/EC) 20 mg PO DAILY RF: 0 cyanocobalamin (vitamin B-12) [Vitamin B-12] 1,000 MCG tablet 1,000 mcg PO DAILY RF: 0 multivitamin 1 EACH capsule 1 ea PO DAILY RF: 0 calcium citrate 250 mg calcium tablet 250 mg PO DAILY RF: 0 cholecalciferol (vitamin D3) 25 mcg (1,000 unit) capsule 25 mcg PO DAILY RF: 0 losartan 25 mg tablet 25 mg PO HS RF: 0 gabapentin 100 mg capsule 300 mg PO DAILY RF: 0 clindamycin HCl 300 mg capsule 600 mg PO ONCE Qty: 2 RF: 0 acetaminophen 500 mg tablet 1,000 mg PO Q8H PRN (Reason: pain) Qty: 90 RF: 3 allopurinol 100 mg tablet 50 mg PO DAILY RF: 0 methylprednisolone 4 mg tablets,dose pack 4 mg PO DAILY RF: 0 Discharge Instructions Instructions: Contusion in Adults (ED), Wrist Sprain (ED) Additional Instructions: Imaging is reassuring here today. No acute fracture or dislocation. Please encourage rest, ice, elevation. Tylenol and/or ibuprofen as needed for discomfort. If you develop any new or worsening symptoms please seek care urgently once again. Otherwise, please follow-up with your primary care 2 weeks for reevaluation. Continue with Rey wrap and brace to help with discomfort. Referrals: Hali Sosa [Primary Care Provider] - Medical Decision Making Patient is a pleasant 61-year-old [id number] female presenting with chief complaint of left wrist and right knee pain. She reports a prior to arrival she was coming down a few steps into her garage. She states the steps are very short and she stumbled falling forward. States that she did hit her head on snowblower but denies LOC. No headache currently. Patient not anticoa gulated. Patient also fell on her left wrist and right knee. These are primary points of pain. Indicating the distal radius and dorsal aspect of the hand there is discomfort in the left wrist. She denies numbness or tingling. Patient is status post TKA on the right side x1 year. Has been ambulatory since the incident. On exam, patient appears nontoxic. No evidence of skull fracture or significant head injury. Her history in regard to the head injury sounds more consistent with contusion. She does not have any exam findings or history to suggest intracranial bleeding or severe head injury. She has a small abrasion to the dorsal aspect of the left hand. No significant swelling. 2+ pulses. Sensation is intact. No snuffbox tenderness or pain with axial thumb loading. Full range of motion of elbow. In regards to the right knee, patient does have a small abrasion over the patella. Full range of motion. No significant joint effusion is palpable. Exam of the left right knee is slightly limited secondary to body habitus. She had described some numbness over the patella but sensation is intact on exam. Motrin Tylenol to help with discomfort. Patient is elevating her extremities. Will obtain x-rays of the left wrist and hand as well as the right knee. FINDINGS: BONES: No acute fracture is present. Old the healed distal radial fracture. No bony destructive lesion is seen. JOINTS: The carpal bones are normally aligned. Mild degenerative changes. SOFT TISSUE: Dorsal soft tissue swelling over the carpal region. IMPRESSION: Unremar old distal radial fracture. No acute fracture. FINDINGS: BONES: Total knee prosthesis, unchanged in appearance. No acute fracture is present. No bony destructive lesion is seen. JOINTS: The knee is normally aligned. No joint effusion is seen. SOFT TISSUE: Normal. IMPRESSION: Total knee prosthesis. No acute fracture. FINDINGS: BONES: No acute fracture is present. Old the healed distal radial fracture. No bony destructive lesion is seen. JOINTS: The carpal bones are normally aligned. Mild degenerative changes. SOFT TISSUE: Dorsal soft tissue swelling over the carpal region. IMPRESSION: Unremar old distal radial fracture. No acute fracture. Discussed the findings with the patient. Encourage rest, ice, elevation. Tylenol and/or ibuprofen as needed for discomfort of the left wrist and right knee. Return precautions were discussed. Will apply Rey wrap to the right knee to help with any swelling. Also apply a universal wrist splint to the left wrist to help with discomfort. Return precautions were discussed. All of her questions and concerns were addressed and she is in agreement this plan. HPI General Mode of arrival: ambulatory . Date/Time Provider Initiated Documentation: 03/22/21 08:33 . Limitations to Documentation: no limitations . Information obtained by: patient and RN notes reviewed . History of Present Illness 61 year old F presents to the emergency department with the chief complaint of left wrist and right knee pain, described as moderate, with intensity rated at 7. Quality is described as aching, and is localized to the left, right, upper extremity and lower extremity. Patient reports no radiation. Patient started experiencing this minute(s) and it has been constant. Immobilization improves symptom(s), Movement worsens symptoms . Patient notes no other symptoms.. Patient did receive the following treatments prior to arrival, none Related Data Home Medications Medication Instructions Recorded Confirmed cyanocobalamin (vitamin B-12) 1,000 mcg PO DAILY 09/14/14 03/22/21 [Vitamin B-12] multivitamin 1 ea PO DAILY 09/14/14 03/22/21 omeprazole 20 mg PO DAILY tab-cap 09/14/14 03/22/20 calcium citrate 250 mg PO DAILY 11/14/19 03/22/21 cholecalciferol (vitamin D3) 25 25 mcg PO DAILY 11/14/19 03/22/21 mcg (1,000 unit) capsule losartan 25 mg tablet 25 mg PO HS 11/14/19 03/22/21 acetaminophen 1,000 mg PO Q8H PRN #90 tab 12/27/19 03/22/21 aspirin 81 mg tablet,delayed 81 mg PO DAILY tab 03/22/20 03/22/21 release gabapentin 100 mg capsule 300 mg PO DAILY cap 03/22/20 03/22/20 clindamycin HCl 300 mg capsule 600 mg PO ONCE #2 cap 10/04/20 03/22/21 allopurinol 50 mg PO DAILY 03/22/21 03/22/21 methylprednisolone 4 mg PO DAILY 03/22/21 03/22/21 Previous Rx's Medication Instructions Recorded acetaminophen 1,000 mg PO Q8H PRN #90 tab 12/27/19 clindamycin HCl 300 mg capsule 600 mg PO ONCE #2 cap 10/04/20 Allergies Allergy/AdvReac Type Severity Reaction Status Date / Time Iodinated Contrast Media Allergy Severe Anaphylaxsi Verified 03/22/21 08:44 s shellfish derived Allergy Severe Verified 03/22/21 08:44 ibuprofen Allergy Intermediate Stage 3 Verified 03/22/21 08:44 kidney disease Penicillins Allergy Intermediate At Verified 03/22/21 08:44 unsure as reaction lactose Allergy Mild Verified 03/22/21 08:44 morphine Allergy Mild Verified 03/22/21 08:44 pineapple Allergy Mild Verified 03/22/21 08:44 tramadol Allergy Mild Verified 03/22/21 08:44 Sulfa (Sulfonamide Allergy Skin Rash Verified 03/22/21 08:44 Antibiotics) codeine AdvReac felt like Verified 03/22/21 08:44 having heart attack General Stated Complaint: Orthopedic ASA: 4 Review of Systems Constitutional Constitutional: Reports as per HPI, Denies chills, Denies fever(s), Denies headache(s) and Denies weakness ENT Ears, Nose, Mouth, and Throat: Denies headache(s) Cardiovascular Cardiovascular: Reports as per HPI Respiratory Respiratory: Reports as per HPI and Denies cough Musculoskeletal Musculoskeletal: Reports as per HPI and Denies tingling Integumentary/Breasts Skin/Breast: Reports as per HPI, Denies rash and Denies wounds Neurologic Neurologic: Reports as per HPI, Denies headache(s), Denies tingling, Denies paresthesias and Denies weakness [facility] Medical History (Updated 03/22/21 @ 10:14 by JUSTINE Salinas) CKD (chronic kidney disease) stage 3, GFR 30-59 ml/min Infected sebaceous cyst of skin Kidney disease Neck mass Surgical History section date not given.HE History of gastric bypass History of trigger finger Hysterectomy, Laproscopic pt did not state date.HE Manipulation and arthroscopic lysis of adhesions (03/17/12) of L knee (from records).HE Oophrectomy, Both no date given.HE Replacement of total knee joint left 03/17/2012 Status post total right knee replacement (12/27/19) Social History Smoking/Tobacco Use Status: Never Smoking risk assessment performed?: Yes Alcohol Intake: never Drug use: Never Substance use type: does not use Current gender identity: female Exam Const General: cooperative, healthy appearing, comfortable, no acute distress, well developed and well groomed Nutritional Appearance: well nourished and overweight Orientation: alert and awake HENPR Head: normal to inspection, no palpable skull fracture, normocephalic and atraumatic Ears: hearing grossly normal bilaterally Face and sinus: normal facial exam Eyes General: appearance normal, both eyes and all related structures Chest Chest: normal inspection of the chest and normal palpation of entire chest wall Resp Effort & Inspection: normal respiratory effort, able to speak in complete sentences and no respiratory distress Cardio Rate: regular rate Rhythm: regular rhythm Skin Trauma: abrasion (left hand and right knee) Neuro General: patient alert and patient awake Cognition: normal cognition Speech: speech normal Gait: normal gait Motor: muscle tone normal throughout Sensory Exam: no sensory deficits noted Extrem Hand/finger images: 1. Superficial abrasion. Good range of motion. 2+ distal pulses. Sensation is intact. No pain over the anatomical snuffbox. No pain with axial thumb micaela ding. Pain over the distal radius and dorsal aspect of the hand. Knee images: 1. Small area of ecchymosis and abrasion. 2+ distal pulses. Full range of mo tion. No effusion. No palpable deformity. Patient does have some discoloration along the medial calf but this is the same as on the contralateral side. Full range of motion of the ankle and toes. No calf discomfort. Pain is over the patella. Psych Appearance: grossly normal and well kempt Mental Status: mental status grossly normal Speech and Movement: speech and movement normal Course Vital Signs Vital signs: Vital Signs Temperature 36.6 C 03/22/21 08:38 Pulse 60 03/22/21 08:38 Respiratory Rate 18 03/22/21 08:38 Blood Pressure 120/67 03/22/21 08:38 Pulse Oximetry 99 03/22/21 08:38 Temperature 36.6 C 03/22/21 08:38 Temperature Source Skin 03/22/21 08:38 Pulse 60 03/22/21 08:38 Respiratory Rate 18 03/22/21 08:38 Respiratory Effort 03/22/21 08:44 Blood Pressure 120/67 03/22/21 08:38 Blood Pressure Position Sitting 03/22/21 08:38 Pulse Oximetry 99 03/22/21 08:38 Oxygen Delivery Method Room Air 03/22/21 08:38 Oxygen Flow Rate 0 03/22/21 08:38 Pain Level 7 03/22/21 08:49
[2021-03-22] MEDS: Acetaminophen 325 MG TAB 650 MG PO (09:09)
[2021-03-22 10:24] VITALS: BP 139/83; PULSE 47; TEMP 36.8; O2SAT 100
== END 2021-03-22 10:31 | disposition home or self-care (01) ==
PROVIDERS: Emergency Provider Physician Assistant; PCP Nurse Practitioner Family
DX: S63.592A Other specified sprain of left wrist, initial encounter (principal); S80.211A Abrasion, right knee, initial encounter; S00.12XA Contusion of left eyelid and periocular area, initial encounter; W10.8XXA Fall (on) (from) other stairs and steps, initial encounter
CPT/HCPCS: 29125; 99284; 73110; 73130; 73564

== ENCOUNTER 2021-04-17 09:36 | Outpatient (REF) | payer MEDICAID, SELFPAY ==
[2021-04-17 20:13] LABS: Anion Gap 3.5 mmol/L (3-11); BUN 19 mg/dL (7-18); CO2 29.5 mmol/L (21.0-32.0); CREATININE 1.7 mg/dL (0.55-1.02); Calcium 8.5 mg/dL (8.5-10.1); Chloride 108 mmol/L (98-107); Estimated GFR 30.45 (mL/min/1.73m2); Glucose 90 mg/dL (74-106); Potassium 5.2 mmol/L (3.5-5.1); Sodium 141 mmol/L (136-145); Uric Acid 7.3 mg/dL (2.6-6.0)
== END 2021-04-17 09:37 | disposition home or self-care (01) ==
LOC: NCHCN 09:36
PROVIDERS: PCP Nurse Practitioner Family; Visit Provider Nurse Practitioner Family
DX: I10 Essential (primary) hypertension (principal); M10.9 Gout, unspecified
CPT/HCPCS: 80048; 84550

== ENCOUNTER 2021-06-10 00:11 | Outpatient (CLI) | payer MEDICAID, SELFPAY ==
--- NOTE | 2021-06-10 08:00 | DI.MAMMO_ITS ---
Exam(s) MAMMO SCREENING EXAM: MAMMO SCREENING CLINICAL HISTORY: [facility] Z00.0 SCREENING FOR BREAST CANCER. TECHNIQUE: Bilateral full field digital CC and MLO mammographic images were obtained with 3D tomosyn thesis and utilizing computer aided detection (CAD). COMPARISON: Prior mammograms dating back to 2011, the most recent being May 2020. FINDINGS: There are no new spiculated masses nor malignant appearing microcalcification groups. There is no significant architectural distortion nor skin thickening-retraction. IMPRESSION: No radiographic evidence of malignancy. BI-RADS Category 1 - Negative Breast Density - Category B - Scattered areas of fibroglandular density Breast density Category C or D implies that the patient has dense breast tissue. Dense breast tissue can make it harder to find cancer on a mammogram. Dense breast tissue is also associated with an incr eased risk of breast cancer. This information about the result of the mammogram report was provided to the patient to raise their awareness. Use this report when you speak with the patient about their risks for breast cancer, which includes their family history. At that time, you may recommend additional screening tests (Ultrasoun d or MRI) as these tests may add significant information. A negative radiographic report should not delay biopsy if a dominant or clinically suspicious mass is present. Up to ten percent of cancers are not identified on mammography. A negative report may reinforce clinical impression. Adenosis and dense breasts may obscure an underlying neoplasm. False positive reports average 6 to 10%. Patient will receive a letter notifying them of these results.
== END 2021-06-10 00:31 ==
PROVIDERS: PCP Nurse Practitioner Family; Visit Provider Nurse Practitioner Family
DX: Z12.31 Encounter for screening mammogram for malignant neoplasm of breast (principal)
CPT/HCPCS: 77063; 77067

== ENCOUNTER 2021-08-29 18:37 | Outpatient (REF) | payer MEDICAID, SELFPAY ==
[2021-08-29 12:51] LABS: Anion Gap 8.1 mmol/L (3-11); BUN 31 mg/dL (7-18); CO2 24.9 mmol/L (21.0-32.0); CREATININE 1.8 mg/dL (0.55-1.02); Calcium 8.7 mg/dL (8.5-10.1); Chloride 106 mmol/L (98-107); Estimated GFR 28.51 (mL/min/1.73m2); Glucose 94 mg/dL (74-106); Potassium 4.6 mmol/L (3.5-5.1); Sodium 139 mmol/L (136-145); Uric Acid 8.3 mg/dL (2.6-6.0)
[2021-08-29 13:20] LABS: Vitamin D 25 Total 13.3 ng/mL (30-100)
== END 2021-08-29 18:38 | disposition home or self-care (01) ==
LOC: NCHCN 18:37
PROVIDERS: PCP Nurse Practitioner Family; Visit Provider Nurse Practitioner Family
DX: I10 Essential (primary) hypertension (principal); E55.9 Vitamin D deficiency, unspecified
CPT/HCPCS: 80048; 82306; 81050; 84550; 84560

== ENCOUNTER 2022-03-27 17:59 | Outpatient (REF) | payer MEDICAID, SELFPAY ==
[2022-03-27 17:13] LABS: BUN 27 mg/dL (7-18); Calcium 8.8 mg/dL (8.5-10.1); Calculated LDL 88 mg/dL (<100); Chloride 106 mmol/L (98-107); Cholesterol 157 mg/dL (<200); Estimated GFR 27.55 (mL/min/1.73m2); Glucose 108 mg/dL (74-106); HDL Cholesterol 45 mg/dL (40-60); Magnesium 1.9 mg/dL (1.8-2.4); Potassium 4.8 mmol/L (3.5-5.1); Sodium 140 mmol/L (136-145); Triglyceride 120 mg/dL (<150); Vitamin B12 745 pg/mL (193-986)
[2022-03-27 17:26] LABS: Uric Acid 6.3 mg/dL (2.6-6.0)
== END 2022-03-27 18:00 | disposition home or self-care (01) ==
LOC: NCHCN 17:59
PROVIDERS: PCP Nurse Practitioner Family; Visit Provider Nurse Practitioner Family
DX: I12.9 Hypertensive chronic kidney disease with stage 1 through stage 4 chronic kidney disease, or unspecified chronic kidney disease (principal); N18.30 Chronic kidney disease, stage 3 unspecified; E53.8 Deficiency of other specified B group vitamins; R25.2 Cramp and spasm
CPT/HCPCS: 80048; 80061; 82607; 83735; 84550

== ENCOUNTER 2022-08-04 11:27 | Outpatient (REF) | payer MEDICAID, SELFPAY ==
[2022-08-04 17:10] LABS: HCT 38.1 % (36.0-46.0); HGB 12.1 g/dL (11.2-15.7); MCH 29.9 pg (27.0-33.0); MCHC 31.8 % (32.0-36.0); MCV 94 fL (80-95); MPV 11.3 fL (8.0-11.0); Platelet Count 263 10^3/uL (130-400); RBC 4.05 10^6/uL (3.93-5.22); RDW-SD 45.4 fL
[2022-08-04 17:27] LABS: Anion Gap 8.6 mmol/L (3-11); BUN 35 mg/dL (7-18); CO2 26.4 mmol/L (21.0-32.0); CREATININE 2.3 mg/dL (0.55-1.02); Calcium 8.7 mg/dL (8.5-10.1); Chloride 106 mmol/L (98-107); Ferritin 77 ng/mL (8-252); Glucose 106 mg/dL (74-106); Magnesium 2.1 mg/dL (1.8-2.4); Potassium 4.7 mmol/L (3.5-5.1); Sodium 141 mmol/L (136-145); TSH (W/Ref FT4) 2.72 uIU/mL (0.36-3.74)
[2022-08-04 17:41] LABS: Iron 83 ug/dL (50-170); Total Iron Binding Capacity 407 ug/dL (250-450); Transferrin Sat 20 % (15-50)
[2022-08-04 19:56] LABS: Hemoglobin A1C 5.8 % (<5.7)
== END 2022-08-04 11:28 | disposition home or self-care (01) ==
LOC: NCHCN 11:27
PROVIDERS: PCP Nurse Practitioner Family; Visit Provider Nurse Practitioner Family
DX: N18.30 Chronic kidney disease, stage 3 unspecified (principal); R25.2 Cramp and spasm; R53.83 Other fatigue; R73.09 Other abnormal glucose; I10 Essential (primary) hypertension; R79.89 Other specified abnormal findings of blood chemistry
CPT/HCPCS: 80048; 85027; 82728; 83036; 83540; 83550; 83735; 84443

== ENCOUNTER 2022-09-01 01:36 | Outpatient (CLI) | payer MEDICAID, SELFPAY ==
--- NOTE | 2022-09-01 09:15 | DI.MAMMO_ITS ---
Exam(s) MAMMO SCREENING EXAM: MAMMO SCREENING CLINICAL HISTORY: SCREENING, Z12.31 TECHNIQUE: Mammograms were interpreted according to the usual protocol including computer analysis w [employer] CAD system, tomosynthesis and C-view imaging. COMPARISON: 2014 through 2020 FINDINGS: The breasts are composed of mainly fatty density , Breast Density category A. No suspicious masses or suspicious microcalcifications are seen. No skin thickening or abnormal axillary lymph nodes are seen. There has been no significant change from prior exams. IMPRESSION: BI-RADS Category 1, Negative mammogram Yearly screening mammography is recommended. Breast Density - Category A, fatty density. A negative radiographic report should not delay biopsy if a dominant or clinically suspicious mass is present. Up to ten percent of cancers are not identified on mammography. A negative report may reinforce clinical impression. Adenosis and dense breasts may obscure an underlying neoplasm. False positive reports average 6 to 10%. Patient will receive a letter notifying them of these results.
== END 2022-09-01 01:56 ==
LOC: DI 01:37
PROVIDERS: PCP Nurse Practitioner Family; Visit Provider Nurse Practitioner Family
DX: Z12.31 Encounter for screening mammogram for malignant neoplasm of breast (principal)
CPT/HCPCS: 77063; 77067

== ENCOUNTER 2022-10-09 09:14 | Outpatient (RCR) | payer MEDICAID, SELFPAY ==
--- NOTE | 2022-10-09 09:15 | HOLTER_ITS ---
APPROVED REPORT Conclusion This is a 48-hour Holter monitor ordered for palpitations Rhythm throughout was sinus with an average heart rate of 56. Maximum was 87, minimum 37 There were very rare isolated atrial and ventricular ectopic beats There was no atrial fibrillation, no high-grade AV block, no pauses greater than 3 seconds No patient symptoms were reported
== END 2022-10-10 23:59 | disposition home or self-care (01) ==
LOC: CARDOPNVT 09:14
PROVIDERS: PCP Nurse Practitioner Family; Visit Provider Nurse Practitioner Family
DX: R00.2 Palpitations (principal)
CPT/HCPCS: 93225; 93226

== ENCOUNTER 2022-10-16 07:00 | Outpatient (RCR) | payer MEDICAID, SELFPAY | END 2022-10-16 07:20 | LOC: CARDOPNVT 07:00 | PROVIDERS: PCP Nurse Practitioner Family; Visit Provider Nurse Practitioner Family | DX: R00.2 Palpitations (principal); I49.1 Atrial premature depolarization | CPT/HCPCS: 93226 ==

== ENCOUNTER 2022-10-31 00:34 | Outpatient (CLI) | payer MEDICAID, SELFPAY ==
--- NOTE | 2022-10-31 10:30 | DI.US_ITS ---
APPROVED REPORT EXAM: Comprehensive 2D, Doppler, and color-flow Echocardiogram Patient Location: Out-Patient [employer] Commercial Salesperson: Jerome Arceo RDMS, RVT Indications: palpitations, chest discomfort, ankle edema Other Information Study Quality: Adequate Conclusion Normal left ventricular wall thickness and chamber size. Ejection fraction is 55%. Wall motion is n ormal Normal right ventricular size and systolic function Both atria are normal in size Trileaflet aortic valve without stenosis or regurgitation Normal mitral valve with mild to moderate regurgitation Normal tricuspid valve with mild regurgitation. Estimated right ventricular systolic pressure is 31 mmHg Mildly dilated ascending aorta 3.45 cm Wall motion Left Ventricle The left ventricle is normal size. The left ventricular systolic function is normal. The left ventri cular ejection fraction is within the normal range. There is normal left ventricular wall thickness. There is normal LV segmental wall motion. There is no ventricular septal defect visualized. LVEF is 5 5%. Right Ventricle The right ventricle is normal size. The right ventricular systolic function is normal. The RVSP is 30 .9 mmHg. Atria The left atrium size is normal. The right atrium size is normal. The interatrial septum is intact wi th no evidence for an atrial septal defect. Aortic Valve The aortic valve is normal in structure. Aortic valve is trileaflet. There is no aortic valvular sten osis. No aortic regurgitation is present. Mitral Valve The mitral valve is normal in structure. No evidence of mitral valve stenosis. Mild to moderate lorna l regurgitation. Tricuspid Valve The tricuspid valve is normal in structure. There is no tricuspid valve stenosis. Mild tricuspid regu rgitation. Pulmonic Valve The pulmonary valve is normal in structure. There is no pulmonic valvular stenosis. Mild pulmonic reg urgitation. Great Vessels The aortic root is normal in size. The ascending aorta is mildly dilated. Aortic arch is normal in ca liber. IVC is normal in size and collapses >50% with inspiration. Pericardium There is no pericardial effusion. 2D Dimensions IVSD d PLAX 0.72 cm F: 0.6-1.0 LV Vol A2C d MOD 120.3 mL LVPW d PLAX 0.80 cm F: 0.6 - 1.0 LV Vol A4C d MOD 139.5 mL LVID d PLAX 5.53 cm F: 3.8 - 5.2 LA vol/ BSA A2C s A-L 49.4 mL/m2 LVDs 4.05 cm F: 2.2 - 3.5 LA vol/ BSA A4C s A-L 47.6 mL/m2 Ao Root d 3.17 cm F: 2.7 - 3.3 LA Vol/ BSA Biplane s A-L 52.3 mL/m2 Ao Asc Diam d 3.45 cm F: 2.3 - 3.1 LA Area A4C s MOD 25.90 cm2 LV EF Teichholz 51.5 % LA Area A2C s MOD 28.46 cm2 LVEF (Harris's) 54.68 % F: 54 - 74 LV EF A4C MOD 54.9 % LV Volume 93.82 mL F: 46 - 106 LV EF A2C MOD 53.7 % LV Volume Index 45.76 mL/m2 F: 29 - 61 LV EF Biplane MOD 54.7 % LV Vol Biplane MOD 131.8 mL SV 72.08 mL FS 26.60 % SV Index 30.52 mL/m2 M-Mode TAPSE 2.90 cm (M/F) >1.7 LV Diastology MV E' medial 0.081 (>0.07 m/s) E/A Ratio 0.9 LV E/e MED 9.55 (<14) MV E Vmax 0.78 (0.4-1.3 m/s) MV E' lateral 0.095 (>0.1 m/s) MV A Vmax 0.85 (0.4-1.3 m/s) LV E/e LAT 8.15 (<14) MV E/A Ratio 0.88 MV E/E' medial 9.56 MV E/E' lateral 8.18 Aortic Valve LVOT Area 3.60 cm2 AoV Area Vmax 2.12 cm2 LVOT Vmax 1.10 m/s AoV Area/ BSA (Vmax) 0.90 cm2/m2 LVOT Mean Ti. 0.80 m/s ELISA Mean Ti. 2.30 cm2 LVOT Peak Grad 4.8 mmHg ELISA Mean Ti. Index 0.97 cm2/m2 LVOT Mean Grad 2.9 mmHg LVOT VTI 0.306 m LVOT Diam s 2.10 cm AoV Vmax 1.86 m/s Velocity Ratio 0.59 AoV Mean Ti. 1.26 m/s AoV Peak Grad 13.8 mmHg LVOT SV 110.13 mL AoV Mean Grad 7.1 mmHg AoV VTI 0.479 m AoV Area VTI 2.30 cm2 AoV Area/ BSA (VTI) 0.97 cm/m2 Mitral Valve MV DT 209 (160-240 msec) MR PISA Radius 0.55 cm MV PHT 61 msec MR Aliasing Velocity 0.35 m/s MV Area PHT 3.63 cm2 MR PISA 1.87 cm2 MV VTI 0.357 m MV Area VTI 3.09 (4.0-6.0 cm2) Pulmonary Valve PV Vmax 1.20 (0.5-1.5 m/s) RVOT Peak Gr. 1.04 mmHg PV Peak Grad 5.7 mmHg RVOT Mean Gr. 0.70 mmHg PV Mean Grad 3.3 mmHg RVOT VTI 0.149 m PV VTI 0.285 m RVOT Vmax 0.51 m/s Tricuspid Valve TR Peak Grad 27.8 mmHg TR Vmax 2.64 m/s RA Pressure 3.00 mmHg RVSP (TR) 30.9 mmHg
== END 2022-10-31 00:54 ==
LOC: DI 00:34
PROVIDERS: PCP Nurse Practitioner Family; Visit Provider Nurse Practitioner Family
DX: R00.2 Palpitations (principal); R60.0 Localized edema
CPT/HCPCS: 93306

== ENCOUNTER 2022-12-01 09:00 | Outpatient (CLI) | payer MEDICAID, SELFPAY ==
--- NOTE | 2022-12-01 09:00 | RT.EKG_ITS ---
APPROVED REPORT Exam: Resting ECG Reason for Exam: palpitations, chest discomfort Patient Location: O HR:51 bpm ECG Measurements Heart Rate 51 AXIS SC 138 P 4 QRSd 96 QRS -2 QT 424 T 27 QTc 391 Conclusion Sinus rhythm...normal P axis, V-rate 50- 99 Normal Electrocardiogram Baseline wander in lead(s) V2
== END 2022-12-01 09:01 | disposition home or self-care (01) ==
LOC: DI.CARD 09:02
PROVIDERS: PCP Nurse Practitioner Family; Visit Provider Internal Medicine Cardiovascular Disease
DX: R00.2 Palpitations (principal); R07.89 Other chest pain
CPT/HCPCS: 93010

== ENCOUNTER 2023-02-09 16:22 | Outpatient (REF) | payer MEDICAID, SELFPAY ==
[2023-02-09 19:30] LABS: Anion Gap 9.6 mmol/L (3-11); BUN 29 mg/dL (7-18); CO2 23.4 mmol/L (21.0-32.0); CREATININE 2.1 mg/dL (0.55-1.02); Calcium 8.3 mg/dL (8.5-10.1); Chloride 109 mmol/L (98-107); Estimated GFR 25.99 (mL/min/1.73m2); Glucose 119 mg/dL (74-106); Potassium 4.4 mmol/L (3.5-5.1); Sodium 142 mmol/L (136-145)
[2023-02-09 19:39] LABS: Hemoglobin A1C 5.7 % (<5.7)
== END 2023-02-09 16:23 | disposition home or self-care (01) ==
LOC: NCHCN 16:22
PROVIDERS: PCP Nurse Practitioner Family; Visit Provider Nurse Practitioner Family
DX: R73.09 Other abnormal glucose (principal); K21.9 Gastro-esophageal reflux disease without esophagitis; N18.30 Chronic kidney disease, stage 3 unspecified; I10 Essential (primary) hypertension
CPT/HCPCS: 80048; 83036

== ENCOUNTER 2023-02-17 01:48 | Outpatient (CLI) | payer MEDICAID, SELFPAY ==
--- NOTE | 2023-02-17 | DI.NM_ITS ---
APPROVED REPORT Exam: Pharmacologic Patient Location: Out-Patient Room/Bed: Stress Nurse: Carole Neely RN Ordering Provider:JOCELYN YOLANDA, Contact Number: [phone] BMI: 42.87 Baseline Rhythm: Sinus Bradycardia Indications: Thoracic Back pain, Exertional intrascapular pain x 3 months Medical History Medical History: [place], CKD, HTN, H/O gastric bypass, depression, cardiac murmur, GERD, IBS, obesity, c hronic knee pain Cardiac Medications: Gabapentin, allopurinol, nitro, aminophylline Allergies: Ibuprofen, iodone contrast, penicillins, morphine, tramadol, sulfa, codeine Cardiac Risk Factors: Family hx, HTN, prediabetes, obesity Previous Cardiac Procedures: None Pretest Chest Pain Characteristics: None Exercise History: Sedentary Physical Disabilities: Knees Heart Sounds: Bradycardia Stress Test Details Test: Pharmacologic stress testing performed using 0.4 mg of regadenoson per 5 mL given IV over 10 s econds. Reason for pharmacologic stress test: physical limitation. Rest Isotope: Tc-99m Sestamibi. Dose: 12.0 Date: 02/17/2023 Injection Time: 0900 Stress Isotope: Tc-99m Sestamibi. Dose: 37.0 Date: 02/17/2023 Injection Time: 1024 HR Resting HR Supine: 44 bpm Max Heart Rate (APMHR): 157.418972 bpm Resting HR Standin bpm Target HR (85% APMHR): 133.620763 bpm Max HR Achieved: 81 bpm % of APMHR: 51.59 Recovery HR: 53 bpm BP Resting BP Supine: 190/80 mmHg Resting BP Standin/88 mmHg Max BP: 220/62 mmHg Recovery BP: 180/70 mmHg BP response to stress: Abnormal hypertensive response to stress. ECG Resting ECG: Sinus Bradycardia Ectopy: Rare PAC Stress ECG: Sinus Rhythm ST Change: Nondiagnostic low heart rate Arrhythmia: None Recovery ECG: Sinus Bradycardia Recovery ST Change: Nondiagnostic low heart rate Recovery Arrhythmia: None Clinical Stress Symptoms: Nausea Angina Score: None Rate Pressure Product: [id number] Stress ECG Conclusion 1. The resting electrocardiogram was normal 2. Patient underwent testing using pharmacologic stress with regadenoson 3. Hypertensive blood pressure response noted. Peak heart rate achieved was 57% of predicted for age 4. The electrocardiographic portion of the test was nondiagnostic 5. See MPI report Stress Test Summary STAGE HR BP SpO2 Symptoms NOTES Supine 44 190/80 97 Standing 50 168/88 97 1 min post Lexiscan injection 59 220/62 Nausea 3 min post Lexiscan injection 56 166/68 98 6 min post Lexiscan injection 53 180/70 97 All symptoms resolved MPI Conclusion Myocardial perfusion is normal. There is no ischemia or evidence of prior infarction Ejection fraction 60% with normal wall motion Radiologist Interpretation Radiologist Interpretation by: Rome Brown MD Interpretation Date/Time: 02/17/2023 16:38:04
[2023-02-17] MEDS: Regadenoson 0.4 MG/5 ML SYR IVP (10:35)
== END 2023-04-29 14:13 ==
LOC: DI 01:48
PROVIDERS: PCP Nurse Practitioner Family; Visit Provider Nurse Practitioner Family
DX: R06.09 Other forms of dyspnea (principal); M54.59 Other low back pain
CPT/HCPCS: 78452; 93017; J2785

== ENCOUNTER 2023-03-04 11:18 | Outpatient (REF) | payer MEDICAID, SELFPAY ==
[2023-03-04 17:44] LABS: Calculated LDL 77 mg/dL (<100); Cholesterol 149 mg/dL (<200); HDL Cholesterol 53 mg/dL (40-60); Triglyceride 97 mg/dL (<150)
== END 2023-03-04 11:19 | disposition home or self-care (01) ==
LOC: NCHCN 11:18
PROVIDERS: PCP Nurse Practitioner Family; Visit Provider Nurse Practitioner Family
DX: I10 Essential (primary) hypertension (principal); M79.18 Myalgia, other site; Z13.220 Encounter for screening for lipoid disorders
CPT/HCPCS: 80061

== ENCOUNTER 2023-09-01 14:40 | Outpatient (REF) | payer MEDICAID, SELFPAY ==
[2023-09-01 15:51] LABS: HGB 11.7 g/dL (11.2-15.7); MCH 29.9 pg (27.0-33.0); MCHC 32.5 % (32.0-36.0); MCV 92 fL (80-95); MPV 10.7 fL (8.0-11.0); Platelet Count 262 10^3/uL (130-400); RBC 3.91 10^6/uL (3.93-5.22); RDW 13.2 % (11.7-14.6); RDW-SD 44.6 fL; WBC 5.88 10^3/uL (4.4-10.8)
[2023-09-01 16:11] LABS: Anion Gap 10.3 mmol/L (3-11); BUN 40 mg/dL (7-18); CO2 25.7 mmol/L (21.0-32.0); CREATININE 2.5 mg/dL (0.55-1.02); Calcium 8.5 mg/dL (8.5-10.1); Chloride 105 mmol/L (98-107); Estimated GFR 20.95 (mL/min/1.73m2); Glucose 102 mg/dL (74-106); Magnesium 2.2 mg/dL (1.8-2.4); Potassium 4.5 mmol/L (3.5-5.1); Sodium 141 mmol/L (136-145); TSH (W/Ref FT4) 2.61 uIU/mL (0.36-3.74)
[2023-09-01 16:20] LABS: Hemoglobin A1C 5.7 % (<5.7)
[2023-09-01 16:23] LABS: Vitamin D 25 Total 9.9 ng/mL (30-100)
[2023-09-01 16:27] LABS: Uric Acid 7.4 mg/dL (2.6-6.0)
== END 2023-09-01 14:41 | disposition home or self-care (01) ==
LOC: NCHCN 14:40
PROVIDERS: PCP Nurse Practitioner Family; Visit Provider Nurse Practitioner Family
DX: R53.83 Other fatigue (principal); N18.30 Chronic kidney disease, stage 3 unspecified; E55.9 Vitamin D deficiency, unspecified; R79.89 Other specified abnormal findings of blood chemistry; E79.0 Hyperuricemia without signs of inflammatory arthritis and tophaceous disease
CPT/HCPCS: 80048; 82306; 85027; 83036; 83735; 84443; 84550

== ENCOUNTER → 2023-09-03 00:55 | Outpatient (CLI) | payer MEDICAID, SELFPAY ==
--- NOTE | 2023-09-03 | DI.MAMMO_ITS ---
Exam(s) MAMMO SCREENING EXAM: MAMMO SCREENING CLINICAL HISTORY: SCREENING,Z12.31,FAMILY H/O BREAST CA TECHNIQUE: Bilateral full field digital CC and MLO mammographic images were obtained with 3D tomosyn thesis and utilizing computer aided detection (CAD). COMPARISON: Available for comparison. FINDINGS: Masses/Architectural Distortion: None seen. Microcalcifications: No suspicious pleomorphic-type are seen. Skin Thickening/Nipple Retraction: None. IMPRESSION: 1. No significant interval change with no specific features of malignancy noted. 2. Unless there is more urgent need, screening mammography is recommended, as per [employer] guidelines. BI-RADS Category 1 - Negative Breast Density - Category B - Scattered areas of fibroglandular density Breast density category C or D implies that the patient has dense breast tissue. Dense breast tissue is very common and is not abnormal but dense breast tissue can make it harder to find cancer on a ma mmogram. Also, dense breast tissue may increase their breast cancer risk. This information about the result of the mammogram report was provided to the patient to raise their awareness. Use this report when you speak with the patient about their risks for breast cancer, which includes their family hist ory. At that time, you may recommend for more screening tests (Ultrasound or MRI) as they might be us eful based on their risk. A negative radiographic report should not delay biopsy if a dominant or clinically suspicious mass is present. Up to ten percent of cancers are not identified on mammography. A negative report may reinforce clinical impression. Adenosis and dense breasts may obscure an underlying neoplasm. False positive reports average 6 to 10%. Patient will receive a letter notifying them of these results.
== END ==
PROVIDERS: PCP Nurse Practitioner Family; Visit Provider Nurse Practitioner Family
DX: Z12.31 Encounter for screening mammogram for malignant neoplasm of breast (principal)
CPT/HCPCS: 77063; 77067

== ENCOUNTER 2023-10-06 20:52 | Outpatient (REF) | payer MEDICAID, SELFPAY ==
[2023-10-06 18:50] LABS: Calcium 8.5 mg/dL (8.5-10.1); PHOSPHORUS 4.5 mg/dL (2.6-4.7)
== END 2023-10-06 20:53 | disposition home or self-care (01) ==
LOC: NCHCN 20:52
PROVIDERS: PCP Nurse Practitioner Family; Visit Provider Nurse Practitioner Family
DX: R25.2 Cramp and spasm (principal)
CPT/HCPCS: 82310; 84100

== ENCOUNTER 2023-10-28 15:51 | Outpatient (REF) | payer MEDICAID, SELFPAY ==
[2023-10-28 17:19] LABS: Uric Acid 6.4 mg/dL (2.6-6.0)
== END 2023-10-28 15:52 | disposition home or self-care (01) ==
LOC: NCHCN 15:51
PROVIDERS: PCP Nurse Practitioner Family; Visit Provider Nurse Practitioner Family
DX: M10.9 Gout, unspecified (principal)
CPT/HCPCS: 84550

== ENCOUNTER 2023-11-12 14:54 | Outpatient (REF) | payer MEDICAID, SELFPAY ==
[2023-11-12 15:46] LABS: Anion Gap 9.5 mmol/L (3-11); BUN 43 mg/dL (7-18); CO2 24.5 mmol/L (21.0-32.0); CREATININE 2.3 mg/dL (0.55-1.02); Calcium 8.6 mg/dL (8.5-10.1); Chloride 106 mmol/L (98-107); Estimated GFR 23.16 (mL/min/1.73m2); Glucose 97 mg/dL (74-106); Potassium 5.3 mmol/L (3.5-5.1); Sodium 140 mmol/L (136-145)
== END 2023-11-12 14:55 | disposition home or self-care (01) ==
LOC: NCHCN 14:54
PROVIDERS: PCP Nurse Practitioner Family; Visit Provider Nurse Practitioner Family
DX: N18.30 Chronic kidney disease, stage 3 unspecified (principal)
CPT/HCPCS: 80048

== ENCOUNTER 2023-11-30 14:06 | Outpatient (REF) | payer MEDICAID, SELFPAY ==
[2023-11-30 15:38] LABS: Anion Gap 7.6 mmol/L (3-11); BUN 30 mg/dL (7-18); CO2 24.4 mmol/L (21.0-32.0); CREATININE 2.1 mg/dL (0.55-1.02); Calcium 8.4 mg/dL (8.5-10.1); Chloride 109 mmol/L (98-107); Estimated GFR 25.83 (mL/min/1.73m2); Glucose 129 mg/dL (74-106); Potassium 4.5 mmol/L (3.5-5.1); Sodium 141 mmol/L (136-145)
== END 2023-11-30 14:07 | disposition home or self-care (01) ==
LOC: NCHCN 14:06
PROVIDERS: PCP Nurse Practitioner Family; Visit Provider Nurse Practitioner Family
DX: N18.30 Chronic kidney disease, stage 3 unspecified (principal)
CPT/HCPCS: 80048

== ENCOUNTER 2023-12-24 15:33 | Outpatient (REF) | payer MEDICAID, SELFPAY ==
[2023-12-24 15:18] LABS: Anion Gap 8.5 mmol/L (3-11); BUN 21 mg/dL (7-18); CO2 25.5 mmol/L (21.0-32.0); CREATININE 2.2 mg/dL (0.55-1.02); Chloride 108 mmol/L (98-107); Estimated GFR 24.42 (mL/min/1.73m2); Glucose 96 mg/dL (74-106); Potassium 4.9 mmol/L (3.5-5.1); Sodium 142 mmol/L (136-145)
== END 2023-12-24 15:34 | disposition home or self-care (01) ==
LOC: NCHCN 15:33
PROVIDERS: PCP Nurse Practitioner Family; Visit Provider Nurse Practitioner Family
DX: N18.30 Chronic kidney disease, stage 3 unspecified (principal)
CPT/HCPCS: 80048

== ENCOUNTER 2024-01-18 13:49 | Outpatient (REF) | payer MEDICAID, SELFPAY ==
[2024-01-18 15:49] LABS: Anion Gap 9.9 mmol/L (3-11); BUN 28 mg/dL (7-18); CO2 24.1 mmol/L (21.0-32.0); CREATININE 2.3 mg/dL (0.55-1.02); Calcium 8.8 mg/dL (8.5-10.1); Chloride 107 mmol/L (98-107); Estimated GFR 23.16 (mL/min/1.73m2); Glucose 105 mg/dL (74-106); Magnesium 2.1 mg/dL (1.8-2.4); Potassium 5.1 mmol/L (3.5-5.1); Sodium 141 mmol/L (136-145); Uric Acid 7.7 mg/dL (2.6-6.0)
[2024-01-18 17:48] LABS: Vitamin D 25 Total 18.2 ng/mL (30-100)
== END 2024-01-18 13:50 | disposition home or self-care (01) ==
LOC: NCHCN 13:49
PROVIDERS: PCP Nurse Practitioner Family; Visit Provider Nurse Practitioner Family
DX: N18.30 Chronic kidney disease, stage 3 unspecified (principal); E55.9 Vitamin D deficiency, unspecified; M10.9 Gout, unspecified; R25.2 Cramp and spasm
CPT/HCPCS: 80048; 82306; 83735; 84550

== ENCOUNTER 2024-09-20 12:05 | Outpatient (REF) | payer MEDICARE, SELFPAY ==
[2024-09-20 15:41] LABS: Abs Immature Grans 0.01 10^3/uL (0.0-0.06); Absolute Basophil Count 0.04 10^3/uL (0.0-0.2); Absolute Eosinophil Count 0.22 10^3/uL (0.0-0.7); Absolute Lymphocyte Count 1.21 10^3/uL (1.2-3.4); Absolute Monocyte Count 0.49 10^3/uL (0.1-0.8); Absolute Neutrophil Count 4.16 10^3/uL (1.2-6.7); Basophils % 0.7 %; Eosinophils % 3.6 %; HCT 38.1 % (36.0-46.0); HGB 12.1 g/dL (11.2-15.7); Immature Grans % 0.2 %; Lymphocytes % 19.7 %; MCH 30.1 pg (27.0-33.0); MCHC 31.8 % (32.0-36.0); MCV 95 fL (80-95); MPV 10.8 fL (8.0-11.0); Neutrophils % 67.8 %; Platelet Count 282 10^3/uL (130-400); RBC 4.02 10^6/uL (3.93-5.22); RDW-SD 45.1 fL; WBC 6.13 10^3/uL (4.4-10.8)
[2024-09-20 16:04] LABS: Iron 101 ug/dL (50-170); Total Iron Binding Capacity 360 ug/dL (250-450); Transferrin Sat 28 % (15-50)
[2024-09-20 16:30] LABS: ALT 17 U/L (14-59); AST 14 U/L (15-37); Albumin 3.7 g/dL (3.4-5.0); Alkaline Phosphatase 87 U/L (46-116); Anion Gap 9.3 mmol/L (3-11); BUN 29 mg/dL (7-18); Bilirubin, Total 0.5 mg/dL (0.2-1.0); CO2 25.7 mmol/L (21.0-32.0); CREATININE 2.3 mg/dL (0.55-1.02); Calcium 8.8 mg/dL (8.5-10.1); Chloride 107 mmol/L (98-107); Estimated GFR 23.01 (mL/min/1.73m2); Ferritin 93 ng/mL (8-252); Folate 12.1 ng/mL (8.6-20.0); Glucose 97 mg/dL (74-106); Potassium 5.5 mmol/L (3.5-5.1); Sodium 142 mmol/L (136-145); Total Protein 6.8 g/dL (6.4-8.2); Vitamin B12 360 pg/mL (193-986); Vitamin D 25 Total 17 ng/mL (30-100)
[2024-09-20 16:58] LABS: Hemoglobin A1C 5.8 % (<5.7)
== END 2024-09-20 12:06 | disposition home or self-care (01) ==
LOC: NCHCN 12:05
PROVIDERS: PCP Nurse Practitioner Family; Visit Provider Family Medicine
DX: Z98.84 Bariatric surgery status (principal); E55.9 Vitamin D deficiency, unspecified; N18.9 Chronic kidney disease, unspecified; Z00.00 Encounter for general adult medical examination without abnormal findings
CPT/HCPCS: 80053; 82306; 82607; 82728; 82746; 83036; 83540; 83550; 85025

== ENCOUNTER 2024-10-25 01:57 | Outpatient (CLI) | payer MEDICARE, SELFPAY ==
--- NOTE | 2024-10-25 08:02 | DI.RAD_ITS ---
Exam(s) XR HIP RT COMPLETE AP PELVIS EXAM: XR HIP RT COMPLETE AP PELVIS CLINICAL HISTORY: Pain in rt hip, M25.551; Rt groin pain exacerbated by RLE internal rotation. TECHNIQUE: 2D digital imaging was performed. Two views COMPARISON: No exams were available for comparison FINDINGS: BONES: No acute fracture is present. No bony destructive lesion is seen. Small enthesophytes at the iliac crests. JOINTS: No dislocation present. The hip joint spaces are maintained. Minimal periarticular spurring . There are mild degenerative changes of the SI joints and pubic symphysis. SOFT TISSUE: Normal. IMPRESSION: No acute abnormality. Minimal degenerative changes. DATA REPOSITORY: RADIATION DOSE DELIVERED:
--- NOTE | 2024-10-25 08:38 | DI.MAMMO_ITS ---
Exam(s) MAMMO SCREENING EXAM: MAMMO SCREENING CLINICAL HISTORY: Screening, Z12.31 TECHNIQUE: Mammograms were interpreted according to the usual protocol including computer analysis w [employer] CAD system, tomosynthesis and C-view imaging. COMPARISON: 2015 through 2023 FINDINGS: The breasts are composed of mainly fatty density , Breast Density category A. No suspicious masses or suspicious microcalcifications are seen. No skin thickening or abnormal axillary lymph nodes are seen. There has been no significant change from prior exams. IMPRESSION: BI-RADS Category 1, Negative mammogram Yearly screening mammography is recommended. Breast Density - Category A, fatty density. A negative radiographic report should not delay biopsy if a dominant or clinically suspicious mass is present. Up to ten percent of cancers are not identified on mammography. A negative report may reinforce clinical impression. Adenosis and dense breasts may obscure an underlying neoplasm. False positive reports average 6 to 10%. Patient will receive a letter notifying them of these results.
== END 2024-10-25 02:17 ==
LOC: DI 02:04
PROVIDERS: PCP Nurse Practitioner Family; Visit Provider Family Medicine
DX: Z12.31 Encounter for screening mammogram for malignant neoplasm of breast (principal); M25.551 Pain in right hip
CPT/HCPCS: 77063; 77067; 73502

== ENCOUNTER → 2024-11-23 11:08 | Outpatient (BNVA) | payer MEDICARE, SELFPAY | PROVIDERS: PCP Nurse Practitioner Family; Referring Provider Family Medicine; Visit Provider Physical Therapy Assistant | DX: Z12.11 Encounter for screening for malignant neoplasm of colon (principal); Z86.0100 Personal history of colon polyps, unspecified | CPT/HCPCS: S0285 ==

== ENCOUNTER 2025-01-11 09:46 | Outpatient (CLI) | payer MEDICARE, SELFPAY ==
[2025-01-11 09:55] LABS: Abs Immature Grans 0.02 10^3/uL (0.0-0.06); HCT 35.7 % (36.0-46.0); HGB 11.4 g/dL (11.2-15.7); Immature Grans % 0.4 %; MCH 30.2 pg (27.0-33.0); MCHC 31.9 % (32.0-36.0); MCV 95 fL (80-95); MPV 10.4 fL (8.0-11.0); Platelet Count 221 10^3/uL (130-400); RBC 3.77 10^6/uL (3.93-5.22); RDW 13.2 % (11.7-14.6); RDW-SD 46.2 fL; WBC 5.55 10^3/uL (4.4-10.8)
[2025-01-11 10:22] LABS: Albumin 3.6 g/dL (3.4-5.0); Anion Gap 14.1 mmol/L (3-11); BUN 32 mg/dL (7-18); CO2 21.9 mmol/L (21.0-32.0); Calcium 8.5 mg/dL (8.5-10.1); Chloride 105 mmol/L (98-107); Estimated GFR 23.01 (mL/min/1.73m2); Glucose 146 mg/dL (74-106); Potassium 4.6 mmol/L (3.5-5.1); Sodium 141 mmol/L (136-145); Uric Acid 7.8 mg/dL (2.6-6.0)
[2025-01-11 11:03] LABS: Ferritin 83 ng/mL (8-252); Folate 18.5 ng/mL (8.6-20.0); Vitamin B12 400 pg/mL (193-986); Vitamin D 25 Total 17 ng/mL (30-100)
[2025-01-11 11:14] LABS: Iron 104 ug/dL (50-170); Total Iron Binding Capacity 367 ug/dL (250-450); Transferrin Sat 28 % (15-50)
== END 2025-01-11 09:47 | disposition home or self-care (01) ==
LOC: LBO 09:56
PROVIDERS: PCP Nurse Practitioner Family; Visit Provider Registered Nurse
DX: N18.9 Chronic kidney disease, unspecified (principal); E55.9 Vitamin D deficiency, unspecified
CPT/HCPCS: 36415; 80048; 82306; 82040; 82607; 82728; 82746; 83540; 83550; 83970; 84100; 84550; 85025

== ENCOUNTER 2025-01-12 13:50 | Outpatient (REF) | payer MEDICARE, SELFPAY ==
[2025-01-12 14:24] LABS: PROTEIN 208.4 mg/dL; Prot/Crea Ur Ratio 1.29
[2025-01-12 14:34] LABS: COMMENT (LAB VIEW ONLY) 154.44 mg/dL
== END 2025-01-12 13:51 | disposition home or self-care (01) ==
LOC: LBN 13:50
PROVIDERS: PCP Nurse Practitioner Family; Visit Provider Registered Nurse
DX: Q61.2 Polycystic kidney, adult type (principal); N18.9 Chronic kidney disease, unspecified; E55.9 Vitamin D deficiency, unspecified; D64.9 Anemia, unspecified; E21.3 Hyperparathyroidism, unspecified
CPT/HCPCS: 82043; 82565; 82570; 84156